=== PATIENT | female | born 1945 | race Caucasian/White ===

== ENCOUNTER 2019-11-26 10:57 | Outpatient (CLI) | payer MEDICARE, SELFPAY | END 2019-11-26 10:58 | disposition home or self-care (01) | LOC: ANHAUDIO 10:59 | PROVIDERS: PCP Family Medicine; Visit Provider Family Medicine | DX: H93.13 Tinnitus, bilateral (principal); H90.3 Sensorineural hearing loss, bilateral | CPT/HCPCS: 92557; 92567 ==

== ENCOUNTER → 2020-03-28 12:10 | Outpatient (CLI) | payer MEDICARE, SELFPAY ==
--- NOTE | ~2020-03-28 | MM_ITS ---
EXAMINATION: MM screening [facility] BI w karmen HISTORY: Screening mammogram TECHNIQUE: Craniocaudal and mediolateral oblique 3-D tomosynthesis images were obtained and synthetic 2-D images were generated. CAD analysis was submitted and interpreted. COMPARISON: 01/13/2019, 10/17/2017, 08/16/2016 BREAST PARENCHYMAL COMPOSITION: There are scattered areas of fibroglandular density. FINDINGS: Scattered benign-appearing calcifications are present. There is no evidence of suspicious m ass, calcification, or architectural distortion to suggest malignancy in either breast. There has bee n no suspicious interval change. IMPRESSION: 1. No mammographic evidence of malignancy. 2. Recommend routine screening mammography in one year. BI-RADS Category 2: Benign finding(s). Reviewed, dictated and finalized at location A. ANCE MECHANIC
== END ==
PROVIDERS: PCP Family Medicine; Visit Provider Family Medicine
DX: Z12.31 Encounter for screening mammogram for malignant neoplasm of breast (principal)
CPT/HCPCS: 77063; 77067

== ENCOUNTER → 2020-05-24 13:10 | Outpatient (CLI) | payer MEDICARE, SELFPAY ==
--- NOTE | ~2020-05-24 | DEXA_ITS ---
Bone Density Report Name: Leanna Jeff Age: 74 Sex: Female Ethnicity: White Date of : 1945 Indication: postmenopausal; screening for osteoporosis; parental hip fracture; height loss; hysterectomy; Referring Provider: Rafal, Aletha Rodríguez Study: Bone densitometry was performed. Exam Date: May 24, 2020 Accession number: [id number] Bone Density: Region BMD T-score Z-score Classification AP Spine (L1-L4) 1.031 -0.1 2.2 Normal Femoral Neck (Left) 0.742 -1.0 1.1 Normal Total Hip (Left) 0.859 -0.7 1.1 Normal Femoral Neck (Right) 0.735 -1.0 1.0 Normal Total Hip (Right) 0.857 -0.7 1.1 Normal Total Hip Mean 0.858 -0.7 1.1 Normal World Health Organization criteria for BMD impression classify patients as: Normal (T-score at or above -1.0), Osteopenia (T-score between -1.0 and -2.5), or Osteoporosis (T-score at or below -2.5). 10-year Fracture Risk: FRAX not reported because: All T-scores for Spine Total, Hip Total, Femoral Neck at or above -1.0 Previous Exams: Region Exam Age BMD T-score BMD Change BMD Change Date g/cm2 vs Baseline vs Previous AP Spine(L1-L4) 05/24/2020 74 1.031 -0.1 0.053* 0.053* 04/23/2012 66 0.978 -0.6 Total Hip(Left) 05/24/2020 74 0.859 -0.7 0.025 0.025 04/23/2012 66 0.834 -0.9 Total Hip(Right) 05/24/2020 74 0.857 -0.7 0.033* 0.033* 04/23/2012 66 0.824 -1.0 *Denotes significance at 95% confidence level, LSC for AP Spine = 0.022 g/cm2, LSC for Total Hip = 0.027 g/cm2 Clinical Information Provided by Patient: Parent has had a hip fracture Has used the following medications: Vitamin D, Calcium Has the following medical conditions: Hysterectomy Patient maximum height was 60.5 Menopause Age: 40 Does not regularly consume dairy products Onset of menses at age 13 Number of children 3 Impression: The patient has normal bone mass. The patient has risk factors, including: parental hip fracture. No significant bone loss was observed. Discussion: BONE DENSITY IS ABOVE THE MINIMUM DESIRABLE LEVEL AT ALL SKELETAL SITES TESTED. This patient?s bone mineral density is above the minimum desirable level (T-score -1.0 or better) at all sites measured. The patient should follow a healthful lifestyle (good nutrition with adequate calcium and vitamin D, and appropriate weight-bearing exercise). Follow-Up: Consider repeating this study in 5 years or sooner if there is some
== END ==
PROVIDERS: PCP Family Medicine; Visit Provider Nurse Practitioner
DX: M81.0 Age-related osteoporosis without current pathological fracture (principal); Z78.0 Asymptomatic menopausal state
CPT/HCPCS: 77080

== ENCOUNTER → 2020-07-26 07:57 | Outpatient (CLI) | payer MEDICARE, SELFPAY ==
--- NOTE | ~2020-07-26 | XR_ITS ---
XR knee LT min 4V 07/26/2020 08:42 Indication: Left knee pain and swelling Procedure: 4 views left knee Comparison: No prior studies for comparison. Findings: There is moderate tricompartment osteoarthritis of the left knee. No fracture, subluxation or dislocation. No significant joint effusion. No foreign body. Impression: 1: Moderate osteoarthritis of the left knee. Reviewed, dictated and finalized at location A. Impression: 1: Moderate osteoarthritis of the left knee.
--- NOTE | ~2020-07-26 | XR_ITS ---
EXAMINATION: XR thoracic spine 3V EXAM DATE: 07/26/2020 08:42 INDICATION: Thoracic back pain. Burning sensation, itching across back. TECHNIQUE: Frontal and lateral projections of the thoracic spine as well as lateral swimmers projecti on of the upper thoracic spine for interpretation. There is no prior study for comparison. FINDINGS: The vertebral bodies are aligned in the AP dimension. Vertebral body and disc heights are well-maintained. There is mild thoracic spondylosis. There are no bony erosions identified. There are no acute fractures identified. Mild aortic arterial sclerosis. Moderate lower cervical spondylosi s. IMPRESSION: Mild thoracic spondylosis. Reviewed, dictated and finalized at location B. IMPRESSION: Mild thoracic spondylosis.
== END ==
PROVIDERS: PCP Family Medicine; Visit Provider Nurse Practitioner
DX: M79.89 Other specified soft tissue disorders (principal); M47.894 Other spondylosis, thoracic region; M17.12 Unilateral primary osteoarthritis, left knee
CPT/HCPCS: 72072; 73564

== ENCOUNTER 2020-11-16 11:19 | Emergency (ER) | payer MEDICARE, SELFPAY ==
[2020-11-16 11:27] VITALS: BP 151/75; PULSE 77; RESP 16; TEMP 36.2; O2SAT 100
--- NOTE | 2020-11-16 12:12 | ED.FALL ---
HPI - Fall General Chief Complaint: Fall Stated Complaint: FALL Time Seen by Provider: 11/16/20 11:52 Source: patient and RN notes reviewed Mode of arrival: ambulatory Limitations: no limitations History of Present Illness HPI Narrative: Patient presents today with a laceration to her posterior scalp. States she fell down 3 stairs in her garage onto the back of her head at 930 this morning. Denies loss of consciousness at that time. Reports a headache that she currently rates 10. Took 400 mg of ibuprofen for her headache, which provided some mild relief. Denies nausea or vomiting, dizziness or lightheadedness, vision changes. She does report some pain to her right elbow and right flank area from the fall as well. She reports a goose egg to her left forehead, but is unsure how she sustained this injury. Reports she is up-to-date on her tetanus vaccine. MD complaint: fall Related Data Home Medications Medication Instructions Recorded Confirmed calcium carbonate-vitamin D3 tablet PO 11/16/20 lisinopril-hydrochlorothiazide tablet 11/16/20 lovastatin mg 11/16/20 metformin mg PO 11/16/20 omeprazole 11/16/20 Allergies Allergy/AdvReac Type Severity Reaction Status Date / Time adhesive tape Allergy Unknown RASH Verified 05/20/18 14:45 alendronate sodium Allergy Unknown LISTLESS Unverified 05/20/18 14:45 AND CONFUSED azithromycin Allergy Unknown Verified 03/24/18 09:29 methylprednisolone Allergy Unknown Verified 03/24/18 09:28 Review of Systems Review of Systems: CONSTITUTIONAL: Denies body aches, fever, chills, or sweats. EYES: Denies visual changes, redness, or discharge. ENT: Denies rhinorrhea, congestion, sore throat, or otalgia. CARDIOVASCULAR: Denies chest pain, palpitations, or edema. RESPIRATORY: Denies cough or dyspnea. GASTROINTESTINAL: Denies abdominal pain, nausea, vomiting, or diarrhea. GENITOURINARY: Denies dysuria or hematuria. SKIN: Denies rash, itching. + Right posterior scalp laceration, left forehead injury MUSCULOSKELETAL: Denies myalgia.+ Right elbow injury, right mid back injury NEUROLOGIC: Denies headache, numbness, tingling, or weakness. PSYCH: Denies depression or anxiety. [facility] Past Medical History Medical History (Updated 11/16/20 @ 12:39 by Mirian Pro, [facility], ) GERD (gastroesophageal reflux disease) High cholesterol Hypertension Social History Social History Smoking status: Current every day smoker Alcohol intake: never Comments At time of signature, I have reviewed and agree with nursing past medical, surgical, social and family history unless otherwise noted. Please see nursing chart for further information. There is no relevant family history pertinent to the presenting complaint Exam Narrative: GENERAL: Well-appearing, well-nourished, and in no acute distress. HEAD: Normocephalic. 3 cm full weakness linear laceration to the right occipital scalp with 5 cm circular area of bogginess surrounding the laceration that is tender to palpation. Patient has a large hematoma to the left forehead as well. EYES: EOMI. PERRL. No redness or drainage. Conjunctivae normal. ENT: Mucous membranes pink and moist. NECK: Normal AROM CHEST: No respiratory distress. Clear to auscultation. HEART: Regular rate and rhythm. No murmur appreciated. Normal peripheral pulses. EXTREMITIES: Contusion and mild edema to the right elbow with full AROM. Distal sensation intact. Capillary refill normal. Radial pulse normal. SKIN: Warm, dry, no rash. Capillary refill normal. Normal skin turgor. NEURO: No focal deficits. Alert and oriented x3. Gait steady. PSYCH: Normal affect. No signs of depression or anxiety. Course Vital Signs Vital signs: Vital Signs Temperature 97.2 F L 11/16/20 11:27 Pulse Rate 77 11/16/20 11:27 Respiratory Rate 16 11/16/20 11:27 Blood Pressure 151/75 H 11/16/20 11:27 Pulse Oxim
== END 2020-11-16 12:20 | disposition short-term general hospital (02) ==
PROVIDERS: Emergency Provider Nurse Practitioner; PCP Family Medicine
DX: S01.01XA Laceration without foreign body of scalp, initial encounter (principal); W10.9XXA Fall (on) (from) unspecified stairs and steps, initial encounter; K21.9 Gastro-esophageal reflux disease without esophagitis; E78.00 Pure hypercholesterolemia, unspecified; I10 Essential (primary) hypertension; F17.200 Nicotine dependence, unspecified, uncomplicated
CPT/HCPCS: 99212; G0463

== ENCOUNTER 2020-11-16 12:36 | Emergency (ER) | payer MEDICARE, SELFPAY ==
--- NOTE | ~2020-11-16 | CT_ITS ---
EXAMINATION: CT brain wo con DATE: 11/16/2020 13:54 INDICATION: Head injury. TECHNIQUE: Computed tomography (CT) of the head was performed without intravenous contrast. The mA wa s adjusted according to patient size. Iterative reconstruction technique was employed. The dose-lengt h product was 605.33 mGy-cm. COMPARISON: Head CT 09/18/2006 FINDINGS: There is no intracranial hemorrhage, acute infarction, or abnormal intracranial mass lesion . 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 The ventricles are normal in size. There is mucos al thickening in the paranasal sinuses. There is a small right mastoid effusion. There is left fronta l and right posterior scalp soft tissue swelling. There are likely changes of ocular lens replacement surgeries. IMPRESSION: 1. 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 Reviewed, dictated and finalized at location A.
--- NOTE | ~2020-11-16 | XR_ITS ---
XR elbow RT min 3V 11/16/2020 13:52 INDICATION: Right elbow pain PROCEDURE: 4 views right elbow COMPARISON: No prior studies for comparison. FINDINGS: Fracture, dislocation or subluxation is not identified. No significant joint effusion. The soft tissues appear within normal limits. No foreign bodies are identified. IMPRESSION: 1: NO ACUTE BONE OR JOINT ABNORMALITY IDENTIFIED. Reviewed, dictated and finalized at location A.
--- NOTE | ~2020-11-16 | XR_ITS ---
[XR ribs RT 2V w CXR 2V ] INDICATION: Right rib pain after fall TECHNIQUE: Frontal projection of the upper right ribs, frontal projection of the lower right ribs, ob lique projection of all the right ribs, frontal inspiratory chest x-ray for interpretation. FINDINGS: There are no displaced rib fractures identified. There are no soft tissue abnormality see n. The lungs are clear. IMPRESSION: 1:No displaced rib fractures. Reviewed, dictated and finalized at location A.
[2020-11-16 12:52] VITALS: BP 153/77; PULSE 89; RESP 20; TEMP 36.9; O2SAT 95
--- NOTE | 2020-11-16 13:11 | ED.GENADULT ---
HPI - General Adult General Chief complaint: Head Injury <JOSE Booker Last Filed: 11/16/20 15:32> Stated complaint: Fall - from urgent care <JOSE Booker Last Filed: 11/16/20 15:32> Time Seen by Provider: 11/16/20 13:02 <JOSE Booker Last Filed: 11/16/20 15:32> Source: patient and RN notes reviewed <JOSE Booker Last Filed: 11/16/20 15:32> Mode of arrival: ambulatory <JOSE Booker Last Filed: 11/16/20 15:32> Limitations: no limitations <JOSE Booker Last Filed: 11/16/20 15:32> History of Present Illness HPI narrative: Patient is a 75-year-old female who presents from urgent care for evaluation of head injury that occurred today patient was turning around when she tripped and fell striking the head injuring the right wrist elbow also complains of right rib pain patient denies syncope loss of consciousness anticoagulant use. Sent over with laceration to the posterior scalp. She notes tetanus up-to-date. Denies other injuries or trauma presents nondistressed <JOSE Booker Last Filed: 11/16/20 15:32> Related Data Home medications: Home Medications Medication Instructions Recorded Confirmed calcium carbonate-vitamin D3 tablet PO 11/16/20 lisinopril-hydrochlorothiazide tablet 11/16/20 lovastatin mg 11/16/20 metformin mg PO 11/16/20 omeprazole 11/16/20 <JOSE Booker Last Filed: 11/16/20 15:32> Allergies/adverse reactions: Allergies Allergy/AdvReac Type Severity Reaction Status Date / Time adhesive tape Allergy Unknown RASH Verified 05/20/18 14:45 azithromycin Allergy Unknown Hives Verified 11/16/20 13:05 methylprednisolone Allergy Unknown Unknown Verified 11/16/20 13:05 alendronate sodium AdvReac Unknown LISTLESS Unverified 11/16/20 13:05 AND CONFUSED <JOSE Booker Last Filed: 11/16/20 15:32> Review of Systems Review of Systems: All systems reviewed & are unremarkable except as noted in HPI and below <JOSE Booker Last Filed: 11/16/20 15:32> [facility] Past Medical History Medical History: Medical History GERD (gastroesophageal reflux disease) High cholesterol Hypertension <Morgan Ferro PA-C - Last Filed: 11/16/20 15:32> Social History Social History: Social History Smoking status: Current every day smoker Alcohol intake: never <Morgan Ferro PA-C - Last Filed: 11/16/20 15:32> Exam Narrative: GENERAL: Well-appearing, well-nourished, and in no acute distress. HEAD: Normocephalic, posterior scalp laceration. EYES: PERRLA and EOMI. ENT: Nares clear, no rhinorrhea or epistaxis. Mucous membranes moist. Oropharynx without tonsillar hypertrophy exudate or other lesions. NECK: Supple. No adenopathy or masses. CHEST: Clear to auscultation. No respiratory distress. No wheezes rales or rhonchi HEART: Regular rate and rhythm. No murmur heard. Normal peripheral pulses. EXTREMITIES: Normal range of motion. No edema. Tenderness of the right elbow right wrist right lateral posterior ribs with no deformity noted. No midline cervical thoracic or lumbar tenderness SKIN: Warm, dry, no rash. NEURO: No focal deficits. Alert and oriented x3. Neurovascularly intact. Capillary refill less than 2-second. Cranial nerves II through XII grossly intact PSYCH: Normal mood and affect. <Morgan Ferro PA-C - Last Filed: 11/16/20 15:32> Course Course Emergency Course: Patient evaluated for injuries related to a fall patient had negative imaging to include CT brain and skeletal imaging she is feeling fine at this time GCS of 15 wound was closed with shawanda she was given indications to return she is afebrile nontoxic-appearing nondistressed and agreeing to follow-up as instructed or to return if symptom
[2020-11-16 15:41] VITALS: RESP 16
== END 2020-11-16 15:40 | disposition home or self-care (01) ==
PROVIDERS: Emergency Provider General Practice; PCP Family Medicine
DX: S01.01XA Laceration without foreign body of scalp, initial encounter (principal); S20.221A Contusion of right back wall of thorax, initial encounter; S59.901A Unspecified injury of right elbow, initial encounter; S69.91XA Unspecified injury of right wrist, hand and finger(s), initial encounter; E78.00 Pure hypercholesterolemia, unspecified; I10 Essential (primary) hypertension; K21.9 Gastro-esophageal reflux disease without esophagitis; F17.200 Nicotine dependence, unspecified, uncomplicated; Z79.84 Long term (current) use of oral hypoglycemic drugs; W01.0XXA Fall on same level from slipping, tripping and stumbling without subsequent striking against object, initial encounter
CPT/HCPCS: 12001; 70450; 71046; 71100; 73080; 99284

== ENCOUNTER → 2021-07-27 10:31 | Outpatient (CLI) | payer MEDICARE, SELFPAY ==
--- NOTE | ~2021-07-27 | XR_ITS ---
EXAMINATION: XR wrist RT min 3V INDICATION: Right wrist pain TECHNIQUE: Four views of the right wrist are obtained. COMPARISON: None available FINDINGS: There is no fracture, dislocation, or subluxation. Mild osteoarthritis is present at the tr iscaphe and first carpometacarpal joints. The soft tissues are unremarkable. IMPRESSION: 1. Mild osteoarthritis. Reviewed, dictated and finalized at location F. IMPRESSION: 1. Mild osteoarthritis.
== END ==
PROVIDERS: PCP Family Medicine; Visit Provider Family Medicine
DX: M19.031 Primary osteoarthritis, right wrist (principal)
CPT/HCPCS: 73110

== ENCOUNTER 2021-08-19 12:15 | Emergency (ER) | payer MEDICARE, SELFPAY ==
[2021-08-19 12:23] VITALS: BP 153/60; PULSE 89; RESP 16; TEMP 36.9; O2SAT 99
--- NOTE | 2021-08-19 12:37 | ED.GENADULT ---
HPI - General Adult General Chief complaint: Dizziness Stated complaint: dizzy,nausea History of Present Illness HPI narrative: Patient is a 76-year-old female who presents to the urgent care via POV for evaluation of intermittent dizziness began yesterday. Additionally, patient reports her dizziness to be kind of like the room spinning . She states the episodes last approximately 3 to 4 minutes which induced nausea. She initially thought she had too much sun yesterday, although is unsure prompting today's visit. Symptoms better when remaining still and worsens all with movement. Related Data Home Medications Medication Instructions Recorded Confirmed calcium carbonate 600 mg-vitamin tablet PO 11/16/20 D3 10 mcg (400 unit) tablet lisinopril 20 tablet 11/16/20 mg-hydrochlorothiazide 12.5 mg tablet lovastatin 10 mg tablet mg 11/16/20 metformin 500 mg tablet,extended mg PO 11/16/20 release 24 hr omeprazole 20 mg capsule,delayed 11/16/20 release Allergies Allergy/AdvReac Type Severity Reaction Status Date / Time adhesive tape Allergy Unknown RASH Verified 05/20/18 14:45 azithromycin Allergy Unknown Hives Verified 11/16/20 13:05 methylprednisolone Allergy Unknown Unknown Verified 11/16/20 13:05 alendronate sodium AdvReac Unknown LISTLESS Unverified 11/16/20 13:05 AND CONFUSED Review of Systems Review of Systems: Denies fever, chills, sweats, change in appetite, LOC, headache, sinus problems, ear problems, paresthesias, back pain, abdominal pain, vomiting, shortness of breath, chest pain, and heart palpitations PMFSH Past Medical History Medical History GERD (gastroesophageal reflux disease) High cholesterol Hypertension Social History Social History Smoking status: Current every day smoker Alcohol intake: never Exam Narrative: GENERAL: Well-appearing, well-nourished, and in no acute distress. HEAD: Normocephalic, atraumatic. NECK: Supple. No Lymphadenopathy or nuchal rigidity appreciated. CHEST: Bilateral lung mcadams are clear to auscultation. No respiratory distress. No evidence of cough or pleuritic cp upon examination. HEART: Regular rate and rhythm. No murmur, gallop, or rub heard. EXTREMITIES: No evidence of injury. Full range of motion. Gait slowed. SKIN: Warm, dry, no rash. NEURO: No focal deficits. Alert and oriented x3. Positive Romberg's test; patient sways to the left and right. Course Course Level of Care: Express Care Visit Vital Signs Vital signs: Vital Signs Temperature 98.5 F 08/19/21 12:23 Pulse Rate 89 08/19/21 12:23 Respiratory Rate 16 08/19/21 12:23 Blood Pressure 153/60 H 08/19/21 12:23 Pulse Oximetry 99 08/19/21 12:23 Temperature 98.5 F 08/19/21 12:23 Pulse Rate 89 08/19/21 12:23 Respiratory Rate 16 08/19/21 12:23 Blood Pressure 153/60 H 08/19/21 12:23 Pulse Oximetry 99 08/19/21 12:23 Medical Decision Making MDM Narrative Medical decision making narrative: Otitis externa, barotrauma, eustachian tube dysfunction, AOM, OME, herpes zoster infection, acute mastoiditis, malignancy, dizziness, vertigo Vital Signs Vital Signs: Vital Signs Temperature 98.5 F 08/19/21 12:23 Pulse Rate 89 08/19/21 12:23 Respiratory Rate 16 08/19/21 12:23 Blood Pressure 153/60 H 08/19/21 12:23 Pulse Oximetry 99 08/19/21 12:23 Temperature 98.5 F 08/19/21 12:23 Pulse Rate 89 08/19/21 12:23 Respiratory Rate 16 08/19/21 12:23 Blood Pressure 153/60 H 08/19/21 12:23 Pulse Oximetry 99 08/19/21 12:23 Due to an elevated blood pressure, I had a detailed discussion with the patient and/or guardian regarding the need for follow-up with their primary care provider within the next 3-4 days. Patient verbalized understanding and agreed. Critical Care Time Critical Care Time
== END 2021-08-19 13:02 | disposition home or self-care (01) ==
PROVIDERS: Emergency Provider Nurse Practitioner Family; PCP Family Medicine
DX: H81.10 Benign paroxysmal vertigo, unspecified ear (principal); K21.9 Gastro-esophageal reflux disease without esophagitis; E78.00 Pure hypercholesterolemia, unspecified; I10 Essential (primary) hypertension; F17.200 Nicotine dependence, unspecified, uncomplicated
CPT/HCPCS: 99213; G0463

== ENCOUNTER → 2021-10-02 12:22 | Outpatient (CLI) | payer MEDICARE, SELFPAY ==
--- NOTE | ~2021-10-02 | MM_ITS ---
EXAMINATION: MM screening [facility] BI w karmen HISTORY: Screening mammogram TECHNIQUE: Craniocaudal and mediolateral oblique 3-D tomosynthesis images were obtained and synthetic 2-D images were generated. CAD analysis was submitted and interpreted. COMPARISON: 03/28/2020, 01/13/2019 BREAST PARENCHYMAL COMPOSITION: There are scattered areas of fibroglandular density. FINDINGS: Scattered benign-appearing calcifications are present. There is no suspicious mass, calcifi cation, or architectural distortion to suggest malignancy in either breast. There has been no suspici ous interval change. IMPRESSION: 1. No mammographic evidence of malignancy. 2. Recommend routine screening mammography in one year. BI-RADS Category 2: Benign finding(s). Reviewed, dictated and finalized at location A.
== END ==
PROVIDERS: PCP Family Medicine; Visit Provider Family Medicine
DX: Z12.31 Encounter for screening mammogram for malignant neoplasm of breast (principal)
CPT/HCPCS: 77063; 77067

== ENCOUNTER 2022-02-01 09:57 | Outpatient (CLI) | payer MEDICARE, SELFPAY ==
--- NOTE | ~2022-02-01 | CT_ITS ---
EXAMINATION: CT diagnostic chest w con DATE: 02/01/2022 10:35 INDICATION: Ocular myasthenia gravis TECHNIQUE: Computed tomography (CT) of the chest was performed with 75 cc Omnipaque 350 intravenous c ontrast. The dose-length product was 134.71 mGy-cm. Automated exposure control and iterative reconstr uction technique were employed. COMPARISON: Comparison to multiple prior studies sequentially, with oldest reviewed study dated 05/19. FINDINGS: There is a stable 1 cm right upper lobe nodule with interval development of central calcifi cation, most likely chronic granulomatous disease. No thoracic lymphadenopathy. There is atherosclero sis of the aorta without evidence for aneurysm or dissection. Heart size is normal. There are gallsto selam. No thoracic lymphadenopathy. There are healed right rib fractures. There is severe thoracic spon dylosis there are no new Christo or nodules or masses. No endobronchial lesions. No pneumothorax. No fo jesse airspace consolidation. IMPRESSION: 1. Stable 10 mm right upper lobe nodule with developing central calcification, most likely chronic gr anulomatous disease. 2: Cholelithiasis. Reviewed, dictated and finalized at location A. COLLECTOR IMPRESSION: 1. Stable 10 mm right upper lobe nodule with developing central calcification, most likely chronic granulomatous disease. 2: Cholelithiasis.
[2022-02-01 10:31] LABS: Estimated Glomerular Filt Rate 44
== END 2022-02-01 09:58 | disposition home or self-care (01) ==
PROVIDERS: PCP Family Medicine
DX: G70.00 Myasthenia gravis without (acute) exacerbation (principal); K80.20 Calculus of gallbladder without cholecystitis without obstruction; R91.1 Solitary pulmonary nodule
CPT/HCPCS: 71260; Q9967

== ENCOUNTER 2022-07-03 15:54 | Emergency (ER) | payer MEDICARE, SELFPAY ==
--- NOTE | ~2022-07-03 | XR_ITS ---
EXAM: XR wrist LT min 3V DATE: 07/03/2022 18:04 HISTORY: bruising and swelling after dog bite . COMPARISON: None available. FINDINGS: Normal mineralization. Small cortical irregularity and lucency along the lateral aspect of the radial styloid, seen only in the frontal view. Otherwise, no fracture or dislocation. No lytic o r blastic lesion. Scattered degenerative changes. No erosion or periosteal change. Mild soft tissue s welling about the wrist. IMPRESSION: Possible nondisplaced radial styloid fracture versus osseous cortical puncture, correlate with pain/tenderness tenderness and overlying soft tissue puncture wounds. No other acute osseous fi nding detected in the left wrist. Reviewed, dictated and finalized at location K. IMPRESSION: Possible nondisplaced radial styloid fracture versus osseous cortic al puncture, correlate with pain/tenderness tenderness and overlying soft tissu e puncture wounds. No other acute osseous finding detected in the left wrist.
--- NOTE | ~2022-07-03 | XR_ITS ---
EXAM: XR humerus LT DATE: 07/03/2022 18:04 HISTORY: dog bite . COMPARISON: None available. FINDINGS: Normal mineralization. No fracture or dislocation. No lytic or blastic lesion. Degenerativ e changes in the shoulder. No erosion or periosteal change. 11.8 cm area of increased density, likely hematoma, and subcutaneous gas projecting in the medial soft tissues of the upper arm. No radiopaque foreign body. IMPRESSION: No acute osseous finding in the left humerus. Medial upper arm soft tissues injury and he matoma. Reviewed, dictated and finalized at location K. IMPRESSION: No acute osseous finding in the left humerus. Medial upper arm soft tissues injury and hematoma.
[2022-07-03 17:52] VITALS: BP 145/71; PULSE 121; RESP 20; TEMP 36.3; O2SAT 96
--- NOTE | 2022-07-03 18:00 | ED.ANIMALBIT ---
HPI - Animal Bite General Chief Complaint: Animal Bite Time Seen by Provider: 07/03/22 17:36 History of Present Illness HPI narrative: 77-year-old female here for evaluation of a dog bite. Patient states that she was saying hello to her neighbors through the fence when their pitbull reportedly came up and bit her left posterior arm through the fence. States that she fell forwards into the fence had a shock into the scrape her nose and her right hand. She has had a moderate amount of pain and bleeding to her arm. Unsure of her last tetanus. Related Data Home Medications Medication Instructions Recorded Confirmed calcium carbonate 600 mg-vitamin tablet PO 11/16/20 D3 10 mcg (400 unit) tablet lisinopril 20 tablet 11/16/20 mg-hydrochlorothiazide 12.5 mg tablet lovastatin 10 mg tablet mg 11/16/20 metformin 500 mg tablet,extended mg PO 11/16/20 release 24 hr omeprazole 20 mg capsule,delayed 11/16/20 release Allergies Allergy/AdvReac Type Severity Reaction Status Date / Time adhesive tape Allergy Unknown RASH Verified 07/03/22 17:50 azithromycin Allergy Unknown Hives Verified 07/03/22 17:50 methylprednisolone Allergy Unknown Unknown Verified 07/03/22 17:50 alendronate sodium AdvReac Unknown LISTLESS Verified 07/03/22 17:50 AND CONFUSED Review of Systems Review of Systems: Gen: Denies fevers or chills Eyes: Denies eye pain or visual change ENT: Denies congestion Respiratory: Denies shortness of breath or cough CV: Denies chest pain or palpitations GI: Denies abdominal pain nausea, emesis or diarrhea : denies burning, urgency, frequency or hematuria Musculoskeletal: Denies back pain or muscle pain Neuro: Denies numbness, tingling, weakness or focal weakness Skin: Reports dog bite Except as documented, all other systems reviewed and negative [facility] Past Medical History Medical History GERD (gastroesophageal reflux disease) High cholesterol Hypertension Social History Social History Smoking status: Current every day smoker Alcohol intake: never Exam Narrative: Gen: Alert, oriented, no acute distress Eyes: EOMI, no icterus Pulm: Respirations even and unlabored, symmetric thorax expansion, no audible stridor or visible cyanosis CV: Regular rate per telemetry GI: No distension, no voluntary/involuntary guarding Neuro: AOx4, moves all extremities without apparent difficulty or weakness, follows commands MSK: No tenderness to palpation along the radial styloid. There is a large amount of bruising and swelling to the left tricep area; compartments in the arm are soft. Skin: There are 2 puncture wounds to the left posterior upper arm with active bleeding and subcutaneous fat visible. There are several abrasions to the dorsum of right finger 5 just proximal to the PIP. She has a small abrasion to the bridge of her nose with no active bleeding. There is a large amount of bruising to the dorsum of the left wrist and the tricep area. Psych: Normal mood/affect, insight/judgement good, adequate fund of knowledge, recent/remote memory intact Course Vital Signs Vital signs: Vital Signs Temperature 97.4 F L 07/03/22 17:52 Pulse Rate 121 H 07/03/22 17:52 Respiratory Rate 20 07/03/22 17:52 Blood Pressure 145/71 H 07/03/22 17:52 Pulse Oximetry 96 07/03/22 17:52 Oxygen Delivery Room Air 07/03/22 17:52 Temperature 97.4 F L 07/03/22 17:52 Pulse Rate 121 H 07/03/22 17:52 Respiratory Rate 20 07/03/22 17:52 Blood Pressure 145/71 H 07/03/22 17:52 Pulse Oximetry 96 07/03/22 17:52 Oxygen Delivery Room Air 07/03/22 17:52 MDM - Animal Bite MDM Narrative Medical decision making narrative: 77 year old female here after a dog bite. There are two puncture wounds to the left tricep area with a large underlying hematoma. Bruising to
[2022-07-03] MEDS: TETANUS,DIPHTHERIA,AC PERTUSSIS ADULT (0.5 ML) BOOSTRIX IM (18:05)
[2022-07-03] MEDS: HYDROcodone/acetaminophen (*CRX) 5-325 MG TABLET 1 TAB PO (18:48)
== END 2022-07-03 19:20 | disposition home or self-care (01) ==
PROVIDERS: Emergency Provider Physician Assistant; PCP Family Medicine
DX: S41.152A Open bite of left upper arm, initial encounter (principal); S50.12XA Contusion of left forearm, initial encounter; Z23 Encounter for immunization; E78.00 Pure hypercholesterolemia, unspecified; I10 Essential (primary) hypertension; K21.9 Gastro-esophageal reflux disease without esophagitis; F17.200 Nicotine dependence, unspecified, uncomplicated; Z79.84 Long term (current) use of oral hypoglycemic drugs; R93.6 Abnormal findings on diagnostic imaging of limbs; W54.0XXA Bitten by dog, initial encounter
CPT/HCPCS: 73060; 73110; 90471; 90715; 99284; A9270

== ENCOUNTER → 2023-03-09 10:13 | Outpatient (CLI) | payer MEDICARE, SELFPAY ==
--- NOTE | ~2023-03-09 | MM_ITS ---
EXAMINATION: MM screening sarai BI w karmen HISTORY: Screening TECHNIQUE: Craniocaudal and mediolateral oblique 3-D tomosynthesis images were obtained and synthetic 2-D images were generated. CAD analysis was submitted and interpreted. COMPARISON: Comparison to multiple prior studies sequentially, with oldest reviewed study dated 09/2014. BREAST PARENCHYMAL COMPOSITION: Breast composed of scattered areas of fibroglandular density FINDINGS: There is no evidence of suspicious mass, calcification, or architectural distortion to sugg est malignancy in either breast. There has been no suspicious interval change. IMPRESSION: 1. No mammographic evidence of malignancy. 2. Recommend routine screening mammography in one year. BI-RADS Category 1: Negative Reviewed, dictated and finalized at location A. [employer]
== END ==
PROVIDERS: PCP Family Medicine; Visit Provider Family Medicine
DX: Z12.31 Encounter for screening mammogram for malignant neoplasm of breast (principal)
CPT/HCPCS: 77063; 77067

== ENCOUNTER 2023-10-09 13:28 | Outpatient (CLI) | payer MEDICARE, SELFPAY ==
--- NOTE | ~2023-10-09 | XR_ITS ---
XR knee LT min 4V Ordering provider: Augustin Narayan, [employer] History: . LEFT KNEE PAIN . Comparison: July 26, 2020 FINDINGS: BONES: No acute fracture or dislocation. JOINT SPACES: Narrowing of the medial compartment. Marginal osteophytes in the patella. SOFT TISSUES: Normal. IMPRESSION: No acute osseous abnormality left knee. Severe osteoarthritic changes. Reviewed, dictated and finalized at location A.
== END 2023-10-09 13:29 | disposition home or self-care (01) ==
PROVIDERS: PCP Family Medicine; Visit Provider Registered Nurse
DX: M17.11 Unilateral primary osteoarthritis, right knee (principal)
CPT/HCPCS: 73564

== ENCOUNTER 2024-05-01 11:45 | Outpatient (CLI) | payer MEDICARE, SELFPAY ==
--- NOTE | ~2024-05-01 | MM_ITS ---
EXAMINATION: MM screening sarai BI w karmen HISTORY: Screening. Personal history of multiple excisional biopsies of the right breast, yielding be nign results. TECHNIQUE: Craniocaudal and mediolateral oblique 3-D tomosynthesis images were obtained and synthetic 2-D images were generated. CAD analysis was submitted and interpreted. COMPARISON: 03/09/2023 and dating back to 01/13/2019 BREAST PARENCHYMAL COMPOSITION: The breasts are heterogeneously dense, which may obscure small masses . FINDINGS: Punctate and bulky calcifications detected bilaterally, vascular in origin, stable and tobin gn in appearance. Otherwise stable parenchymal pattern without suspicious microcalcifications, architectural distortion , discrete masses or significant asymmetry. IMPRESSION: 1. No mammographic/tomographic evidence of malignancy. 2. Recommend routine screening mammography in one year. BI-RADS Category 2: Benign finding(s). Reviewed, dictated and finalized at location A. D GUARD
== END 2024-05-01 11:46 | disposition home or self-care (01) ==
LOC: MICIMG 11:46
PROVIDERS: PCP Family Medicine; Visit Provider Family Medicine
DX: Z12.31 Encounter for screening mammogram for malignant neoplasm of breast (principal)
CPT/HCPCS: 77063; 77067

== ENCOUNTER 2024-07-03 08:22 | Outpatient (CLI) | payer MEDICARE, SELFPAY ==
--- OUTSIDE RECORDS SUMMARY | 2024-07-03 08:27 | XMS_ITS | Clinical Summary ---
Author Organization [facility] [address] Address [address] [place] [address] Care Team Providers Care Logistics Technician Name Role Phone Frank Gillis MD Primary Care Provider [phone] Emy Blanca OD Unavailable [phone] Mihaela Knowles MD PhD Unavailab le Allergies Active Allergy Reactions Criticality Noted Date Comments Adhesive Rash Medium 01/15/2022 Azithromycin Hives Medium 01/15/2022 Medications calcium carbonate-vitamin D3 (CALTRATE 600 + D) 1500 mg (600 mg elemental) -400 units per tablet TAKE ONE TABLET IN THE MORNING AND ONE TABLET IN THE EVENING 11/20/19 22 Active lovastatin (MEVACOR) 20 mg tablet Take 1 tablet (20 mg total) by mouth daily 10/25/19 22 Active metFORMIN XR (GLUCOPHAGE XR) 500 mg 24 hr tablet Take 1 tablet (500 mg total) by mouth daily 01/03/20 22 Active omeprazole (PriLOSEC) 20 mg capsule Take by mouth daily 10/22/19 22 Active omega 6-mwz-nva-fish oil 1,200 (144-216) mg capsule Take by mouth Active meclizine (ANTIVERT) 12.5 mg tablet Take 1 tablet (12.5 mg total) by mouth 3 (three) times a day as needed Active lisinopriL (PRINIVIL,ZESTRIL) 20 mg tablet Take 1 tablet (20 mg total) by mouth daily 09/29/19 23 Active loratadine (CLARITIN) 10 mg tablet Take 1 tablet (10 mg total) by mouth every morning 07/04/19 23 Active pyRIDostigmine (MESTINON) 60 mg tabletIndications: Myasthenia Gravis,Ocular Myasthenia Take 2 tablets (120 mg total) by mouth 3 (three) times a day with meals 540 tablet 3 10/03/19 23 Active Additional Information Patient not taking.Reported on 02/03/2024 fexofenadine ODT (SEGUN ODT) 30 mg disintegrating tablet Take 1 tablet (30 mg total) by mouth daily Active xr-sotx-sitth-lyco pene-ginkgo 400-300-120 mcg-mcg-mg tablet Take by mouth Multivitamin Active triamcinolone (KENALOG) 0.1 % cream 09/25/19 24 Active psyllium seed, with sugar, (METAMUCIL, SUGAR, ORAL) Take by mouth Active predniSONE (DELTASONE) 10 mg tabletIndications: Myasthenia gravis (HCC) TAKE 2 TABLETS BY MOUTH DAILY 180 tablet 2 01/28/20 24 Active cyanocobalamin (Vitamin B-12) 1,000 mcg tabletIndications: Prevention of Vitamin B12 Deficiency Take 1 tablet (1,000 mcg total) by mouth daily Active Active Problems Problem Noted Date Diagnosed Date Nonrheumatic aortic valve stenosis 11/04/2023 Essential hypertension 11/04/2023 Mixed hyperlipidemia 11/04/2023 Myasthenia gravis 01/15/2022 Ptosis, right eyelid Encounters Date Type Department Care Team Description 06/19/[address] [facility] Neuro Muscle [address] [facility] Advanced Medicine 6th [place] [address] [place] [address] Bettie Kelley RN 05/12/[address] [facility] Neuro Muscle [address] [facility] Medicine 6th [place] [address] [place] [address] Nanci Pham RMA lung biopsy (Spoke with Denia Morelos at [facility] (medical record dep), I did sent her Leder head latter to fax us Lung biopsy from 2019.) 04/30/2024 3:25 PM BREAKFAST BAR ATTENDANT Lab [facility] [address] [place] [address] Myasthenia gravis (HCC); High risk medication use 04/30/2024 11:00 AM BREAKFAST BAR ATTENDANT Office Visit [facility] Neuro Muscle [address] [facility] 6th [place] [address] [place] [address] Mihaela Knowles MD PhD Myasthenia gravis (HCC) (Primary Dx); High risk medication use from Last 3 Months Surgical History Surgery Date Site/Laterality Comments HYSTERECTOMY 02/25/1989 - 02/24/1990 CARPAL TUNNEL RELEASE 02/25/1989 - 02/24/1990 Bilateral CATARACT EXTRACTION W/ INTRA OCULAR LENS IMPLANT, BILATERAL Bilateral Medical History Medical History Date Comments Hypertension Arthritis Pseudophakia of both eyes History of TIA (transient ischemic attack) Hyperlipidemia Diabetes mellitus, type 2 (HCC) Myasthenia gravis (HCC) 01/15/2022 Murmur, cardiac Vertigo Chronic kidney disease Family History Medical History Relation Name Comments Psoriasis Child Crohn's disease Daughter Glaucoma Mother Relation Name Status Comments Child Alive Daughter Alive Mother Social History Tobacco Use Types Packs/Day Years Used Date Smoking Tobacco: Former Cigarettes 0.3 25 0 02/25/1961 - 02/25/1985 Smokeless Tobacco: Never Tobacco Cessation:Counseling Given: No AUDIT-C Answer Date Recorded Q1: How often do you have a drink containing alc ohol? Monthly or less 12/04/2022 Average Number of Drinks Not on file 023 Frequency of Binge Drinking Not on file 11/25 Comments Unknown Sex and Gender Information Value Date Recorded Sex Assigned at Not on file Legal Sex Female 2:47 AM BREAKFAST BAR ATTENDANT Gender Identity Not on file Sexual Orientation Not on file Obstetrics History Last Filed Vital Signs Vital Sign Reading Time Taken Comments Blood Pressure 172/67 04/30/2024 10:39 AM BREAKFAST BAR ATTENDANT Pulse 88 04/30/2024 10:39 AM BREAKFAST BAR ATTENDANT Temperature - - Respiratory Rate - - Oxygen Saturation 97% 02/03/2024 12:03 PM BREAKFAST BAR ATTENDANT Inhaled Oxygen Concentration - - Weight 79.8 kg (176 lb) 04/30/2024 10:39 AM BREAKFAST BAR ATTENDANT Height 152.4 cm (5') 04/30/2024 10:39 AM BREAKFAST BAR ATTENDANT Body Mass Index 34.37 04/30/2024 10:39 AM BREAKFAST BAR ATTENDANT Plan of Treatment Health Maintenance Due Date Last Done Comments Depression Screening 1945 Fall Risk Assessment 1945 Hepatitis C Screening 1945 Osteoporosis Screening-Bone Density Scan 1945 DTaP/Tdap/Td Vaccine (1 - Tdap) 1956 Hepatitis B Screening 06/13/1963 Zoster Vaccine (1 of 2) 06/13/1995 Well Visit 65+ 2010 Pneumococcal vaccine 65+ (2 of 2 - PPSV23) 12/14/2019 12/13/2018 Covid-19 Vaccine (5 2023-2 5 season) 2023 06/29/2021, 01/16/2021, 05/10/2020, Additional history exists Influenza Vaccine (Season Ended) 2024 12/19/2021, 12/06/2020, 10/28/2019, Additional history exists Procedures Procedure Name Priority Date/Time Associated Diagnosis Comments EGFR Routine 04/30/2024 12:44 PM BREAKFAST BAR ATTENDANT Myasthenia gravis (HCC) High risk medication use DIFFERENTIAL AUTO Routine 04/30/2024 12: 44 PM BREAKFAST BAR ATTENDANT Myasthenia gravis (HCC) High risk medication use ACETYLCHOLINE RECEPTOR, BINDING AB Routine 04/30/2024 12:44 PM BREAKFAST BAR ATTENDANT Myasthenia gravis (HCC) High risk medication use COMPREHENSIVE METABOLIC PANEL Routine 04/30/2024 12:44 PM BREAKFAST BAR ATTENDANT Myasthenia gravis (HCC) High risk medication use CBC WITH AUTO DIFFERENTIAL Routine 04/30/2024 12:44 PM BREAKFAST BAR ATTENDANT Myasthenia gravis (HCC) High risk medication use HEMOGLOBIN A1C Routine 04/30/2024 12:44 PM BREAKFAST BAR ATTENDANT Myasthenia gravis (HCC) High risk medication use from Last 3 Months Results * (ABNORMAL) eGFR (04/30/2024 12:44 PM BREAKFAST BAR ATTENDANT) eGFR 54(L) >=60 mL/min/1. 73 m2 Comment: Interpretive Data Reference Interval Normal >/= 90 mL/min/1.73m2 Mildly decreased* 60 - 89 mL/min/1.73m2 Mildly to moderately decreased 45 - 59 mL/min/1.73m2 Moderately to severely decreased 30 - 44 mL/min/1.73m2 Severely decreased 15 - 29 mL/min/1.73m2 Kidney Failure < 15 mL/min/1.73m2 *Relative to young adult level Estimated glomerular filtration rate is determined by the 2020 CKD-EPI equation recommended by the National Kidney Foundation (A Unifying Approach to GFR Estimation: Recommendations of the NKF-ASK Task Force on Reassessing the Inclusion of Race in Diagnosing Kidney Disease, JASN 2020). The CKD-EPI equation should not be used for patients with unstable renal function and has not been validated in children and those over 70. Current interpretive data was last reviewed 2020. Blood 04/30/2024 12:4 4 PM BREAKFAST BAR ATTENDANT 04/30/2024 1:07 PM BREAKFAST BAR ATTENDANT us Mihaela Knowles MD PhD LAB BLOOD ORDERABLES Final Result [facility] Department [place] [address] * (ABNORMAL) Differential, auto (04/30/2024 12:44 PM BREAKFAST BAR ATTENDANT) Pathologist [facility] Neutrophil abs 15.8(H) 1.5 - 6.5 K/cumm Imm gran abs 0.5(H) 0.0 - 0.1 K/cumm [facility] Lymphocyte abs 1.0 0.8 - 3.3 K/cumm [facility] Monocyte abs 0.7 0.2 - 0.8 K/cumm [facility] Eosinophil abs 0.0 0.0 - 0.5 K/cumm [facility] Basophil abs 0.1 0.0 - 0.1 K/cumm [facility] Neutrophil pct 87.5 % [facility] Comment: Interpretive Data Percent cell count reference ranges are not reported, since discordance with absolute values may lead to misinterpretation of CBC data. Current Interpretive Data was last revised on 2017. Imm gran pct 2.6 % [facility] Comment: Interpretive Data Percent cell count reference ranges are not reported, since discordance with absolute values may lead to misinterpretation of CBC data. Current Interpretive Data was last revised on 2017. Lymphocyte pct 5.6 % [facility] Comment: Interpretive Data Percent cell count reference ranges are not reported, since discordance with absolute values may lead to misinterpretation of CBC data. Current Interpretive Data was last revised on 2017. Monocyte pct 3.6 % [facility] Comment: Interpretive Data Percent cell count reference ranges are not reported, since discordance with absolute values may lead to misinterpretation of CBC data. Current Interpretive Data was last revised on 2017. Eosinophil pct 0.1 % [facility] Comment: Interpretive Data Percent cell count reference ranges are not reported, since discordance with absolute values may lead to misinterpretation of CBC data. Current Interpretive Data was last revised on 2017. Basophil pct 0.6 % [facility] Comment: Interpretive Data Percent cell count reference ranges are not reported, since discordance with absolute values may lead to misinterpretation of CBC data. Current Interpretive Data was last revised on 2017. Blood 04/30/2024 12:4 4 PM BREAKFAST BAR ATTENDANT 04/30/2024 1:01 PM BREAKFAST BAR ATTENDANT us Mihaela Knowles MD PhD LAB BLOOD ORDERABLES Final Result [facility] Department [place] [address] * (ABNORMAL) CBC with auto differential (04/30/2024 12:44 PM BREAKFAST BAR ATTENDANT) WBC 18.0(H) 3.8 - 9.9 K/cumm Hgb 12.0 11.9 - 15.5 g/dL [facility] Hct 37.6 35.6 - 45.5 % [facility] Plt 436(H) 150 - 400 K/cumm [facility] MPV 10.1 9.1 - 12.3 fL [facility] RBC 4.29 3.90 - 5.20 M/cumm [facility] MCV 87.6 81.3 - 96.4 fL [facility] MCH 28.0 27.1 - 33.3 pg [facility] MCHC 31.9(L) 32.3 - 35.7 g/dL [facility] RDW CV 15.1(H) 11.1 - 14.9 % [facility] RDW SD 48.6(H) 35.7 - 48.1 fL [facility] NRBC abs 0.00 0.00 - 0.01 K/cumm [facility] Blood 04/30/2024 12:4 4 PM BREAKFAST BAR ATTENDANT 04/30/2024 1:01 PM BREAKFAST BAR ATTENDANT us Mihaela Knowles MD PhD LAB BLOOD ORDERABLES Final Result [facility] Department [place] [address] * (ABNORMAL) Acetylcholine receptor, binding AB (04/30/2024 12:44 PM BREAKFAST BAR ATTENDANT) [facility] Anti-acetylcholine receptor, binding 0.53(H) <=0.02 nmol/L [facility] Comment: Due to a change in assay reagent for the Acetylcholine Receptor (Muscle AChR) Binding Antibody (ARBI) test, direct quantitative comparison to previous testing results is not advised. ADDITIONAL INFORMATION This test was developed and its performance characteristics determined by [facility] in a manner consistent with CLIA requirements. This test has not been cleared or approved by the U.S. Food and Drug Administration. Test Performed by: [facility] - [address] [address] Gastroenterology Physician: Rachel Arvizu Ph.D.; CLIA# [id number] Blood 04/30/2024 12:4 4 PM BREAKFAST BAR ATTENDANT 04/30/2024 2:02 PM BREAKFAST BAR ATTENDANT Mihaela Knowles MD PhD LAB BLOOD ORDERABLES Final Result Performing Organization Address [facility] Co de Phone Number [facility] Department [place] [address] [facility] * (ABNORMAL) Hemoglobin A1c (04/30/2024 12:44 PM BREAKFAST BAR ATTENDANT) Pathologist [facility] Hgb A1C 6.6(H) 4.0 - 5.6 % Estimated Average Glucose 143 mg/dL [facility] Comment: The ADA recommends reporting an estimated Average Glucose (eAG) with all Hemoglobin A1c results using the equation derived from a study of 507 normal and diabetic adults. Minority populations were underrepresented and children were not included. (Diabetes Care 2020; 43(S1): S66-S76). The eAG is not equivalent to a fasting glucose. Blood 04/30/2024 12:4 4 PM BREAKFAST BAR ATTENDANT 04/30/2024 1:01 PM BREAKFAST BAR ATTENDANT Mihaela Knowles MD PhD LAB BLOOD ORDERABLES Final Result Performing Organization Address [facility] de Phone Number [facility] Department [place] [address] * Comprehensive metabolic panel (04/30/2024 12:44 PM BREAKFAST BAR ATTENDANT) [facility] Sodium 142 135 - 145 mmol/L Potassium, pl 4.6 3.3 - 4.9 mmol/L [facility] Chloride 103 97 - 110 mmol/L [facility] CO2 27 22 - 32 mmol/L [facility] Anion gap 12 2 - 15 mmol/L [facility] BUN 24 6 - 25 mg/dL [facility] Creatinine 1.05 0.60 - 1.10 mg/dL [facility] Glucose 154 70 - 199 mg/dL [facility] Comment: Interpretive Data Fasting glucose >/= 126 mg/dl is diagnostic for diabetes. Fasting is defined as no caloric intake for at least 8 hours. Fasting glucose between 100 mg/dl to 125 mg/dl is diagnostic of prediabetes. In a patient with classic symptoms of hyperglycemia or hyperglycemic crisis, a random glucose >/= 200 mg/dl is diagnostic for diabetes. In the absence of unequivocal hyperglycemia, results should be confirmed by repeat testing. The classification and Diagnosis of Diabetes Diabetes Care 2021; 46: S19-S40. Current interpretive data was last revised 2022. Calcium 9.7 8.5 - 10.3 mg/dL [facility] Bilirubin, total 0.3 0.1 - 1.2 mg/dL [facility] Protein, pl 7.2 6.5 - 8.5 g/dL [facility] Albumin 4.1 3.5 - 5.0 g/dL [facility] Alk phos 64 40 - 130 Units/L [facility] ALT 21 7 - 45 Units/L [facility] AST 17 10 - 45 Units/L [facility] Blood 04/30/2024 12:4 4 PM BREAKFAST BAR ATTENDANT 04/30/2024 1:01 PM BREAKFAST BAR ATTENDANT Mihaela Knowles MD PhD LAB BLOOD ORDERABLES Final Result [facility] [place] [address] from Last 3 Months Insurance [facility] [employer]CR HMO REF MEDICARE ADVANTAGE Member Subscriber Plan / Payer (Ef fective 2023-Present) Name:Leanna Jeff Relation to Subscriber:Self Name:Leanna Jeff Payer ID:[id number] (NAIC) Type:[facility] MEDICARE Address: [address] [phone] Care Teams Logistics Technician Relationship Specialty Start Date End Date Frank Gillis MD PCP - General Family Medicine 01/15/22 Emy Blanca OD [address] [place] [address] Referring Physician Optometry 01/15/22 Mihaela Knowles MD PhD [address] [facility] NEUROLOGY NEUROMUSCULAR, [address] [address] Neurologist Neurology 9/5/23
--- OUTSIDE RECORDS SUMMARY | 2024-07-03 08:27 | XMS_ITS | Data Portability ---
Author Organization [place] - [place] [employer] [facility], Main Office Address [address] [place] [address] Care Team Providers Care Bar Steward Name Role Phone VALENTINO GARCIA Primary Care Provider VALENTINO GARCIA Referring Provider [phone] Assessment No assessment recorded. Plan of Treatment Reminders Order Date Submit Date Provider Last Modified By Organization Details Last Modified Time Details Appointments None record ed. Lab None record ed. Referral None record ed. Procedures None record ed. Surgeries None record ed. Imaging XR, wrist, 3 or more view 023 08/01/19 [email or web address] [facility] [place], [address] [place] [address] [address], [place], [address], 15:20:02 Medication Orders None record ed. Patient TargetsNo targets recorded. Patient InstructionsNo instructions recorded. Reason for Referral None Reported. Results Created Date Observation Date Name Description Value Unit Range Abnormal Flag Note LastModifiedBy Organization Detail LastModifiedTime 07/18/1907/03/2022 XR, wrist , 3 or more view No observ ation record ed. [email or web address] Not Available 06/26 10:10:30 07/18/19 23 07/03/2022 XR, humer us No observ ation record ed. [email or web address] Not Available 06/26 10:10:30 07/18/19 23 07/03/2022 XR, wrist No observ ation record ed. [email or web address] Not Available 2022 10:12:42 07/18/19 23 07/03/2022 XR, humer us, 2 or more view No observ ation record ed. [email or web address] Not Available 2022 10:13:16 06/06/20 23 XR, wrist , 3 or more view No observ ation record ed. [email or web address] [facility] [place] [address], [place], [address], 07/31/2022 15:20:01 Result Notes None recorded. Problems Name Problem SNOMED Code Status Onset Date Resolution Date Notes Provider Name and Address Organization Details Recorded Time Pain of left wrist 177349615485652 Active 2022 Gail Black, ROSELYN null, [place] [facility] 14:19:46 Open wound of left upper arm due to dog bite 37611519284032687 Active 2022 Pawan Waggoner MD [address] [place] [address], [facility] [address], [place], [address] , [employer] 15:20:19 Problem Notes None recorded. Procedures Surgical History None recorded. Imaging Results Imaging Date Name Status LastModified by Organiz ation Details LastModified Time 07/03/2022 XR, wrist, 3 or more view completed Information not available 07/17/2022 10:10:30 07/03/2022 XR, humerus completed Information not available 07/17/2022 10:10:30 07/03/2022 XR, wrist completed [email or web address] Information no t available 07/17/2022 10:12:42 07/03/2022 XR, humerus, 2 or more view completed [email or web address] Information not available 07/17/2022 10:13:16 07/31/2022 XR, wrist, 3 or more view completed [email or web address] [facility] [place] [address], [place], [address], 07/31/2022 15:20:01 Procedure Notes None recorded. Medical Equipment None Reported. Medications Name Sig Start Date Stop Date Status Note LastModified by Organization Details LastModified Time prednisone 10 mg tablet TAKE 2 TABLETS BY MOUTH DAILY active Not Available Not Available No t Available lisinopril 20 mg-hydrochl orothiazide 12.5 mg tablet TAKE 1 TABLET BY MOUTH EVERY DAY 07/31 completed Not Available Not Available Not Available meloxicam 15 mg tablet TAKE 1 TABLET BY MOUTH EVERY DAY IN THE MORNING 07/31 completed Not Available Not Available Not Available lisinopril 20 mg tablet TAKE 1 TABLET BY MOUTH EVERY DAY active Not Available Not Available No t Available prednisone 20 mg tablet TAKE 1 ORAL TABLET 2 TIMES A DAY MORNING AND EVENING 07/31 completed Not Available Not Available Not Available meclizine 12.5 mg tablet TAKE 2 TABLETS BY MOUTH DAILY 07/31 completed Not Available Not Available Not Available pyridostigm ine bromide 60 mg tablet TAKE 2 TABLETS (120 MG TOTAL) BY MOUTH 3 (THREE) TIMES A DAY WITH MEALS active Not Available Not Available No t Available omeprazole 20 mg capsule,del ayed release TAKE 1 CAPSULE BY MOUTH EVERY DAY IN THE MORNING active Not Available Not Available No t Available lovastatin 20 mg tablet TAKE 1 TABLET BY MOUTH EVERY DAY active Not Available Not Available No t Available albuterol sulfate HFA 90 mcg/actuati on aerosol inhaler INHALE 1 TO 2 PUFFS BY MOUTH 2 TO 3 TIMES DAILY NEEDED FOR SHORTNESS OF BREATH 07/31 completed Not Available Not Available Not Available ondansetron 4 mg disintegrat ing tablet DISSOLVE 1 TABLET ON TONGUE EVERY 8 HOURS FOR 4 DAYS 07/31 completed Not Available Not Available Not Available fluticasone propionate 50 mcg/actuati on nasal spray,suspe nsion USE 1-2 NASAL SPRAYS DAILY. active Not Available Not Available No t Available metformin ER 500 mg tablet,exte nded release 24 hr TAKE 1 TABLET BY MOUTH EVERY DAY active Not Available Not Available No t Available loratadine 10 mg tablet TAKE 1 TABLET BY MOUTH EVERY DAY IN THE MORNING active Not Available Not Available No t Available amoxicillin 875 mg-potassiu m clavulanate 125 mg tablet TAKE 1 TABLET BY MOUTH EVERY 12 HOURS 07/31 completed Not Available Not Available Not Available amoxicillin 500 mg-potassiu m clavulanate 125 mg tablet 07/31 completed Not Available Not Available Not Available calcium 600 mg (as carbonate)- vitamin D3 10 mcg (400 unit) tablet TAKE ONE TABLET IN THE MORNING AND ONE TABLET IN THE EVENING active Not Available Not Available No t Available Vitals Date Recorded Body height Body mass index (BMI) Body weight Pain severity - 0-10 verbal numeric rating [Score] - Reported Provider Name and Address Organization Details Last Updated DateTime 07/31/2022 152.4 cm 29.9 kg/m2 19456.63 g 8 ROSELYN Wall [facility] [employer] 07/31/2022 14:16:48 Social History Question Answer Notes LastModified by Organizat ion Details LastModified Time Tobacco Smoking Status Unknown If Ever Smoked ROSELYN Wall null, [facility] [employer] [facility] 07/31/2022 14:18:23 What Is Your Level Of Alcohol Consumption? None [email or web address] Information not available 07/31/2022 What Was The Date Of Your Most Recent Tobacco Screening? 07/31/2022 [email or web address] Information not available 07/31/2022 Sex: Unknown Functional Status None recorded. Mental Status None recorded. Family History Relationship Description Onset Age of this Age Resolved Age Notes LastModified by Organization Details LastModified Time Mother Family history of malignant neoplasm [email or web address] Not available 2022 14:17:57 Medical History Condition Response ARTHRITIS Y STROKE/TIA Y Gynecological HistoryNo gynecological history recorded. Obstetrics History GPAL:G 0 P 0 0 0 0 Past Encounters Encounter ID Performer Location Encounter Start Date Encounter Closed Date Diagnosis/Indication Diagnosis SNOMED-CT Code Diagnosis ICD10 Code Diagnosis Note [id number] Pawan Waggoner MD [facility] [place] [address] [facility] [address] [place] [address] 07/31/2022 13:57:15 07/31/2022 14:38:46 Pain of left wrist 4109746615 03499 M25.532 Open wound of left upper arm due to dog bite 9556660108 1134095 S41.152A patient has a organized hematoma in the posterior arm and 1 in the medial arm odds of these slowly reabsorbin g or pretty good. She needs to avoid pressure over the ulnar nerve and prolonged flexion of the elbow that can irritate the ulnar nerve is she still has a little tingly sensation in the ulnar distributi on of the hand. From dog bites, patients typically have more of a neuropraxi c type injury had the odds are pretty good that her numbness and tingling will diminish with time. We would need to see her again if she has any issues related to the hematoma not reabsorbed being on its own and causing her any irritation of her arm over time. Patient can do moist heat from time to time 10-20 minutes to help with any sensitivit y associated inflammati on in the arm Health Concerns Section Related Observation LastModified by Organization Detai ls LastModified Time None Recorded Concern Status LastModified by Organization Details LastModified Time None Recorded Advance Directives Directive None Recorded Payers Encounter Date Sequence Insurance Name Policy Number Policy Grady Covered Member ID Grady Member ID Guarantor Name 07/31/2022 1 [facility] (MEDICARE REPLACEMENT/A DVANTAGE - HMO) [id number] Leanna L Tomer [id number] Leanna Tomer Notes Date Note Type Note Provider Name and Address Organization Details Recorded Time 07/31/2022 text/html patient was attacked by a dog, not her dog. Injury occurred 07/03/2022. The dog hit her up against her right hip and then started to lunge towards her throat she put out her left arm to protect herself suffering bites around the posterior distal arm just above the elbow and near the wrist on the left side. Patient has some numbness and tingling around the elbow and around the wrist has a lump over the posterior elbow and over the medial elbow. Patient has noticed a little improvement over the last several weeks. She has been trying to avoid putting any pressure over the wrist or elbow area uses a pillow to avoid pressure on the elbow when she is riding in the car and uses it at night to prop up her elbow and arm. Pawan Waggoner MD [address] [place] [address], [place] [address], [place], [address], [facility] [employer] 07/31/2022 15:22:00 OBGyn Episode No OBEpisode recorded.
--- OUTSIDE RECORDS SUMMARY | 2024-07-03 08:27 | XMS_ITS | Continuity of Care Document ---
Author Organization [facility] Address [address] [place] [address] [place] [address] Phone Care Team Providers Care Wheel Molder Name Role Phone Fuentes Kyle Unavailable Unavailable Procedures Procedure Date Eye Exam & Treatment Office/outpatient Visit, [facility] Advance Directives Directive Yes / No Effective Date File Name No Information Encounters Encounter Description Practice Location Reason(s) For Visit Diagnoses Date Provider Providers Copied on Encounter [facility], [address] [place] [address] [address], [place], [place], [id number], tel:[phone] [facility] ([facility]) No Information 4-201 0 Saroj Dill. [address] [place] [address], [facility], [place]. tel:[phone] Referring Provider: Fuentes tejada, [facility] [address], [facility]. tel:[phone] Office/outpat ient Visit, [facility], [address] [place] [address] [address], [place], [place], [address], tel:[phone] [facility] No Information 0-200 7 Miko Corrales. [address], [facility] [place], [address], [place]. tel:[phone] Family History Family Member Type Diagnosis Age At Onset No Information Payers Payer name Insurance type Covered libertarian ID Authoriza tion(s) No Information Social History Type Description Quantity Date Captured Comments Sex Female Smoking Status No Information Chief Complaint And Reason For Visit No Information Reason For Referral Reason For Referral No Information History Of Present Illness Encounter Date Complaint History Of Prese nt Illness No Information Functional Status Date Functional Assessmen t No Information Instructions Date Instruction Additional Infor mation No Information Assessments Type Assessment Date No Information Patient Care Teams Name Effective Dates (start - stop) Status Members No Information
--- OUTSIDE RECORDS SUMMARY | 2024-07-03 08:28 | XMS_ITS | Referral Summary ---
Author Organization [facility] [address] Address [address] [place] [address] Care Team Providers Care Smash Hand Name Role Phone Frank Gillis MD Primary Care Provider [phone] Emy Blanca OD Unavailable Mihaela Knowles MD PhD Unavailab le Encounters Date Type Department Care Team Description 06/19/2024 Telephone [facility] Neuro Muscle [address] [facility] 6th [place] [address] [place] [address] Bettie Kelley RN 05/12/2024 Documentation [facility] Neuro Muscle [address] [facility] 6th [place] [address] [place] [address] Nanci Pham RMA lung biopsy (Spoke with Denia Morelos at [facility] (medical record dep), I did sent her Leder head latter to fax us Lung biopsy from 2019.) 04/30/2024 3:25 PM HEALTH SERVICES MANAGER Lab [facility] [address] [place] [address] Myasthenia gravis (HCC); High risk medication use 04/30/2024 11:00 AM HEALTH SERVICES MANAGER Office Visit [facility] Neuro Muscle [address] [facility] 6th [place] [address] [place] [address] Mihaela Knowles MD PhD Myasthenia gravis (HCC) (Primary Dx); High risk medication use from Last 3 Months Allergies Active Allergy Reactions Criticality Noted Date [...] by mouth daily 10/22/19 22 Active omega 7-cwp-onf-fish oil 1,200 (144-216) mg capsule Take by [...] (30 mg total) by mouth daily Active mm-xrag-hgmpb-lyco pene-ginkgo 400-300-120 mcg-mcg-mg tablet Take by mouth [...] 11/04/2023 Myasthenia gravis 01/15/2022 Ptosis, right eyelid Social History Tobacco Use Types Packs/Day Years [...] on file Legal Sex Female 2:47 AM HEALTH SERVICES MANAGER Gender Identity Not on file Sexual Orientation Not on file Last Filed Vital Signs Vital Sign Reading Time Taken Comments Blood Pressure 172/67 04/30/2024 10:39 AM HEALTH SERVICES MANAGER Pulse 88 04/30/2024 10:39 AM HEALTH SERVICES MANAGER Temperature - - Respiratory Rate - - Oxygen Saturation 97% 02/03/2024 12:03 PM HEALTH SERVICES MANAGER Inhaled Oxygen Concentration - - Weight 79.8 kg (176 lb) 04/30/2024 10:39 AM HEALTH SERVICES MANAGER Height 152.4 cm (5') 04/30/2024 10:39 AM HEALTH SERVICES MANAGER Body Mass Index 34.37 04/30/2024 10:39 AM HEALTH SERVICES MANAGER Plan of Treatment Not on file Procedures Procedure Name Priority Date/Time Associated Diagnosis Comments EGFR Routine 04/30/2024 12:44 PM HEALTH SERVICES MANAGER Myasthenia gravis (HCC) High risk medication use DIFFERENTIAL AUTO Routine 04/30/2024 12: 44 PM HEALTH SERVICES MANAGER Myasthenia gravis (HCC) High risk medication use ACETYLCHOLINE RECEPTOR, BINDING AB Routine 04/30/2024 12:44 PM HEALTH SERVICES MANAGER Myasthenia gravis (HCC) High risk medication use COMPREHENSIVE METABOLIC PANEL Routine 04/30/2024 12:44 PM HEALTH SERVICES MANAGER Myasthenia gravis (HCC) High risk medication use CBC WITH AUTO DIFFERENTIAL Routine 04/30/2024 12:44 PM HEALTH SERVICES MANAGER Myasthenia gravis (HCC) High risk medication use HEMOGLOBIN A1C Routine 04/30/2024 12:44 PM HEALTH SERVICES MANAGER Myasthenia gravis (HCC) High risk medication use from Last 3 Months Results * (ABNORMAL) eGFR (04/30/2024 12:44 PM HEALTH SERVICES MANAGER) eGFR 54(L) >=60 mL/min/1. 73 m2 Comment: [...] reviewed 2020. Blood 04/30/2024 12:4 4 PM HEALTH SERVICES MANAGER 04/30/2024 1:07 PM HEALTH SERVICES MANAGER us Mihaela Knowles MD PhD LAB BLOOD ORDERABLES Final Result [facility] [place] [address] * (ABNORMAL) Differential, auto (04/30/2024 12:44 PM HEALTH SERVICES MANAGER) Neutrophil abs 15.8(H) 1.5 - 6.5 K/cumm Imm gran abs 0.5(H) 0.0 - 0.1 K/cumm [facility] Lymphocyte abs 1.0 0.8 - 3.3 K/cumm [facility] Monocyte abs 0.7 0.2 - 0.8 K/cumm [facility] Eosinophil abs 0.0 0.0 - 0.5 K/cumm [facility] Basophil abs 0.1 0.0 - 0.1 K/cumm [facility] Neutrophil pct 87.5 % [facility] Comment: Interpretive Data Percent cell count reference ranges are not reported, since discordance with absolute values may lead to misinterpretation of CBC data. Current Interpretive Data was last revised on 2017. Imm gran pct 2.6 % [facility] Comment: Interpretive Data Percent cell count reference ranges are not reported, since discordance with absolute values may lead to misinterpretation of CBC data. Current Interpretive Data was last revised on 2017. Lymphocyte pct 5.6 % [facility] Comment: Interpretive Data Percent cell count reference ranges are not reported, since discordance with absolute values may lead to misinterpretation of CBC data. Current Interpretive Data was last revised on 2017. Monocyte pct 3.6 % [facility] Comment: Interpretive Data Percent cell count reference ranges are not reported, since discordance with absolute values may lead to misinterpretation of CBC data. Current Interpretive Data was last revised on 2017. Eosinophil pct 0.1 % [facility] Comment: Interpretive Data Percent cell count reference ranges are not reported, since discordance with absolute values may lead to misinterpretation of CBC data. Current Interpretive Data was last revised on 2017. Basophil pct 0.6 % [facility] Comment: Interpretive Data Percent cell count reference ranges are not reported, since discordance with absolute values may lead to misinterpretation of CBC data. Current Interpretive Data was last revised on 2017. Blood 04/30/2024 12:4 4 PM HEALTH SERVICES MANAGER 04/30/2024 1:01 PM HEALTH SERVICES MANAGER Mihaela Knowles MD PhD LAB BLOOD ORDERABLES Final Result Performing Organization Address City/[facility]/ZIP Co de Phone Number [facility] Department [place] [address] * (ABNORMAL) CBC with auto differential (04/30/2024 12:44 PM HEALTH SERVICES MANAGER) [facility] WBC 18.0(H) 3.8 - 9.9 K/cumm Hgb 12.0 11.9 - 15.5 g/dL [facility] Hct 37.6 35.6 - 45.5 % [facility] Plt 436(H) 150 - 400 K/cumm [facility] MPV 10.1 9.1 - 12.3 fL [facility] RBC 4.29 3.90 - 5.20 M/cumm [facility] MCV 87.6 81.3 - 96.4 fL [facility] MCH 28.0 27.1 - 33.3 pg [facility] MCHC 31.9(L) 32.3 - 35.7 g/dL [facility] RDW CV 15.1(H) 11.1 - 14.9 % [facility] RDW SD 48.6(H) 35.7 - 48.1 fL [facility] NRBC abs 0.00 0.00 - 0.01 K/cumm [facility] Blood 04/30/2024 12:4 4 PM HEALTH SERVICES MANAGER 04/30/2024 1:01 PM HEALTH SERVICES MANAGER Mihaela Knowles MD PhD LAB BLOOD ORDERABLES Final Result [facility] Department [place] [address] * (ABNORMAL) Acetylcholine receptor, binding AB (04/30/2024 12:44 PM HEALTH SERVICES MANAGER) Pathologist [facility] Anti-acetylcholine receptor, binding 0.53(H) <=0.02 nmol/L [facility] Comment: Due to a change in assay reagent for the Acetylcholine Receptor (Muscle AChR) Binding Antibody (ARBI) test, direct quantitative comparison to previous testing results is not advised. ADDITIONAL INFORMATION This test was developed and its performance characteristics determined by [facility] in a manner consistent with CLIA requirements. This test has not been cleared or approved by the U.S. Food and Drug Administration. Test Performed by: [address] [address] Natural Resources Technician: Rachel Arvizu Ph.D.; CLIA# [id number] Blood 04/30/2024 12:4 4 PM HEALTH SERVICES MANAGER 04/30/2024 2:02 PM HEALTH SERVICES MANAGER Mihaela Knowles MD PhD LAB BLOOD ORDERABLES Final Result Performing Organization Address [facility] de Phone Number [facility] [place] [address] [facility] * (ABNORMAL) Hemoglobin A1c (04/30/2024 12:44 PM HEALTH SERVICES MANAGER) Hgb A1C 6.6(H) 4.0 - 5.6 % Estimated Average Glucose 143 mg/dL [facility] Comment: The ADA recommends reporting an estimated Average Glucose (eAG) with all Hemoglobin A1c results using the equation derived from a study of 507 normal and diabetic adults. Minority populations were underrepresented and children were not included. (Diabetes Care 2020; 43(S1): S66-S76). The eAG is not equivalent to a fasting glucose. Blood 04/30/2024 12:4 4 PM HEALTH SERVICES MANAGER 04/30/2024 1:01 PM HEALTH SERVICES MANAGER Mihaela Knowles MD PhD LAB BLOOD ORDERABLES Final Result Performing Organization Address [facility] Co de Phone Number [facility] [place] [address] * Comprehensive metabolic panel (04/30/2024 12:44 PM HEALTH SERVICES MANAGER) Sodium 142 135 - 145 mmol/L Potassium, pl 4.6 3.3 - 4.9 mmol/L [facility] Chloride 103 97 - 110 mmol/L [facility] CO2 27 22 - 32 mmol/L [facility] Anion gap 12 2 - 15 mmol/L [facility] BUN 24 6 - 25 mg/dL [facility] Creatinine 1.05 0.60 - 1.10 mg/dL [facility] Glucose 154 70 - 199 mg/dL [facility] Comment: Interpretive Data Fasting glucose >/= 126 [...] 2022. Calcium 9.7 8.5 - 10.3 mg/dL [facility] Bilirubin, total 0.3 0.1 - 1.2 mg/dL [facility] Protein, pl 7.2 6.5 - 8.5 g/dL [facility] Albumin 4.1 3.5 - 5.0 g/dL [facility] Alk phos 64 40 - 130 Units/L [facility] ALT 21 7 - 45 Units/L [facility] AST 17 10 - 45 Units/L [facility] Blood 04/30/2024 12:4 4 PM HEALTH SERVICES MANAGER 04/30/2024 1:01 PM HEALTH SERVICES MANAGER us Mihaela Knowles MD PhD LAB BLOOD ORDERABLES Final Result [facility] One [facility] [place] [address] from Last 3 Months Insurance [facility]CR HMO REF [facility] Address: [place] [address] [employer] MEDIC[employer] [address] [facility]IC[facility] Address: [address] [employer] MEDICARE ADVANTAGE [facility] MEDICARE Address: [address] [address] [address] Care Teams Smash Hand Relationship Specialty Start Date End Date Frank Gillis MD PCP - General Family Medicine 01/15/22 Emy Blanca OD [address] [place] [address] Referring Physician Optometry 01/15/22 Mihaela Knowles MD PhD [address] [facility], [address] [address] Neurologist Neurology 10/30/22
== END 2024-07-03 08:23 | disposition home or self-care (01) ==
PROVIDERS: PCP Family Medicine; Visit Provider Registered Nurse
DX: M79.671 Pain in right foot (principal)
CPT/HCPCS: 73630

== ENCOUNTER 2024-07-24 06:53 | Outpatient (CLI) | payer MEDICARE, SELFPAY ==
--- OUTSIDE RECORDS SUMMARY | 2024-07-24 06:56 | XMS_ITS | Data Portability ---
Author Organization [place] [employer] [facility], Main Office Address [address] [place] [address] Care Team Providers Care Cathode Ray Tube Assembler Name Role Phone VALENTINO GARCIA Primary Care Provider VALENTINO GARCIA Referring Provider [phone] Assessment No assessment recorded. Plan of Treatment Reminders Order Date Submit Date Provider Last Modified By Organization Details Last Modified Time Details Appointments None record ed. Lab None record ed. Referral None record ed. Procedures None record ed. Surgeries None record ed. Imaging XR, wrist, 3 or more view 023 08/01/19 [email or web address] [facility] [place], [address] [place] [address] [address], [place], [address], 15:20:02 Medication Orders None record ed. Patient [...] XR, wrist No observ ation record ed. [email or web address] Not Available 2022 10:12:42 07/18/19 23 07/03/2022 XR, humer us, 2 or more view No observ ation record ed. [email or web address] Not Available 2022 10:13:16 06/06/20 23 XR, wrist , 3 or more view No observ ation record ed. [email or web address] [facility] [place] [address], [place], [address], 07/31/2022 15:20:01 Result Notes None recorded. Problems Name Problem SNOMED Code Status Onset Date Resolution Date Notes Provider Name and Address Organization Details Recorded Time Pain of left wrist 284316336308732 Active 2022 ROSELYN Wall null, [place] [employer] 3 14:19:46 Open wound of left upper arm due to dog bite 88780659996269277 Active 2022 Pawan Waggoner MD [address] [place] [address], [facility] [address], [place], [address] , [employer] 15:20:19 Problem Notes None recorded. Medical Equipment None Reported. [...] height Body mass index (BMI) Body weight Provider Name and Address Organization Details Last Updated DateTime 07/31/2022 152.4 cm 29.9 kg/m2 67449.63 g ROSELYN Wall [employer] [facility] [employer] 07/31/2022 14:16:46 Social History Question Answer Notes LastModified by Organizat ion Details LastModified Time Tobacco Smoking Status Unknown If Ever Smoked ROSELYN Wall null [facility] [employer] 07/31/2022 14:18:23 What Was The Date Of Your Most Recent Tobacco Screening? 07/31/2022 [email or web address] Information not available 07/31/2022 Sex: Unknown Functional Status Question Answer Note LastModified by Organization D etails LastModified Time What is your level of alcohol consumption? None [email or web address] Information not available 07/31/2022 Mental Status None recorded. Family History Relationship Description Onset Age of this Age Resolved Age Notes LastModified by Organization Details LastModified Time Mother Family history of malignant neoplasm [email or web address] Not available 2022 14:17:57 Medical History Condition Response ARTHRITIS Y STROKE/TIA Y Gynecological HistoryNo gynecological history recorded. Obstetrics History GPAL:G 0 P 0 0 0 0 Past Encounters Encounter ID Performer Location Encounter Start Date Encounter Closed Date Diagnosis/Indication Diagnosis SNOMED-CT Code Diagnosis ICD10 Code Diagnosis Note [id number] Pawan Waggoner MD [facility] [place] [address] [place] [address] 07/31/2022 13:57:15 07/31/2022 14:38:46 Pain of left wrist 7280177557 42941 M25.532 Open wound of left upper arm due to dog bite 2269690812 [id number] S41.152A patient has a organized hematoma in [...] Grady Member ID Guarantor Name 07/31/2022 1 [facility] (MEDICARE REPLACEMENT/A DVANTAGE - HMO) [id number] Leanna Jeff [id number] Leanna Jeff Notes Date Note Type Note Provider Name [...] her elbow and arm. Pawan Waggoner MD [address] [place] [address], [place] [address], [place], [address], [place] [employer] [place] [employer] [facility] 07/31/2022 15:22:00 OBGyn Episode No OBEpisode recorded.
--- OUTSIDE RECORDS SUMMARY | 2024-07-24 06:56 | XMS_ITS | Clinical Summary ---
Author Organization [facility] [address] Address [address] [place] [address] Care Team Providers Care Journeyman Carpenter Name Role Phone Frank Gillis MD Primary Care Provider [phone] Emy Blanca OD Unavailable [phone] Mihaela Knowles MD PhD Unavailab le Allergies [...] by mouth daily 10/22/19 22 Active omega 1-ewp-jrp-fish oil 1,200 (144-216) mg capsule Take by [...] (30 mg total) by mouth daily Active po-otca-jounq-lyco pene-ginkgo 400-300-120 mcg-mcg-mg tablet Take by mouth [...] Type Department Care Team Description 06/19/2024 Telephone [facility] [address] [facility] Medicine [address]th [place] [address] [place] [address] Bettie Kelley RN 05/12/2024 Documentation [facility] [address] [facility] Medicine 6th [place] [address] [place] [address] Nanci Pham RMA lung biopsy (Spoke with Denia Morelos at [facility] (medical record dep), I did sent her Leder head latter to fax us Lung biopsy from 2019.) 04/30/2024 3:25 PM PERFECT BINDER OPERATOR Lab [facility] [address] [place] [address] Myasthenia gravis (HCC); High risk medication use 04/30/2024 11:00 AM PERFECT BINDER OPERATOR Office Visit [facility] [address] [facility] 6th [place] [address] [place] [address] Mihaela Knowles MD PhD Myasthenia gravis (HCC) [...] on file Legal Sex Female 2:47 AM PERFECT BINDER OPERATOR Gender Identity Not on file Sexual Orientation Not on file Obstetrics History Last Filed Vital Signs Vital Sign Reading Time Taken Comments Blood Pressure 172/67 04/30/2024 10:39 AM PERFECT BINDER OPERATOR Pulse 88 04/30/2024 10:39 AM PERFECT BINDER OPERATOR Temperature - - Respiratory Rate - - Oxygen Saturation 97% 02/03/2024 12:03 PM PERFECT BINDER OPERATOR Inhaled Oxygen Concentration - - Weight 79.8 kg (176 lb) 04/30/2024 10:39 AM PERFECT BINDER OPERATOR Height 152.4 cm (5') 04/30/2024 10:39 AM PERFECT BINDER OPERATOR Body Mass Index 34.37 04/30/2024 10:39 AM PERFECT BINDER OPERATOR Plan of Treatment Health Maintenance Due Date [...] Diagnosis Comments EGFR Routine 04/30/2024 12:44 PM PERFECT BINDER OPERATOR Myasthenia gravis (HCC) High risk medication use DIFFERENTIAL AUTO Routine 04/30/2024 12: 44 PM PERFECT BINDER OPERATOR Myasthenia gravis (HCC) High risk medication use ACETYLCHOLINE RECEPTOR, BINDING AB Routine 04/30/2024 12:44 PM PERFECT BINDER OPERATOR Myasthenia gravis (HCC) High risk medication use COMPREHENSIVE METABOLIC PANEL Routine 04/30/2024 12:44 PM PERFECT BINDER OPERATOR Myasthenia gravis (HCC) High risk medication use CBC WITH AUTO DIFFERENTIAL Routine 04/30/2024 12:44 PM PERFECT BINDER OPERATOR Myasthenia gravis (HCC) High risk medication use HEMOGLOBIN A1C Routine 04/30/2024 12:44 PM PERFECT BINDER OPERATOR Myasthenia gravis (HCC) High risk medication use from Last 3 Months Results * (ABNORMAL) eGFR (04/30/2024 12:44 PM PERFECT BINDER OPERATOR) eGFR 54(L) >=60 mL/min/1. 73 m2 Comment: [...] reviewed 2020. Blood 04/30/2024 12:4 4 PM PERFECT BINDER OPERATOR 04/30/2024 1:07 PM PERFECT BINDER OPERATOR us Mihaela Knowels MD PhD LAB BLOOD ORDERABLES Final Result [facility] Department [place] [address] * (ABNORMAL) Differential, auto (04/30/2024 12:44 PM PERFECT BINDER OPERATOR) Pathologist [facility] Neutrophil abs 15.8(H) 1.5 - 6.5 K/cumm Imm gran abs 0.5(H) 0.0 - 0.1 K/cumm [facility] Lymphocyte abs 1.0 0.8 - 3.3 K/cumm [facility] Monocyte abs 0.7 0.2 - 0.8 K/cumm [facility] Eosinophil abs 0.0 0.0 - 0.5 K/cumm [facility] Basophil abs 0.1 0.0 - 0.1 K/cumm [facility] Neutrophil pct 87.5 % [facility] Comment: Interpretive Data Percent cell count reference ranges are not reported, since discordance with absolute values may lead to misinterpretation of CBC data. Current Interpretive Data was last revised on 2017. Imm gran pct 2.6 % [facility] Comment: Interpretive Data Percent cell count reference ranges are not reported, since discordance with absolute values may lead to misinterpretation of CBC data. Current Interpretive Data was last revised on 2017. Lymphocyte pct 5.6 % [facility] Comment: Interpretive Data Percent cell count reference ranges are not reported, since discordance with absolute values may lead to misinterpretation of CBC data. Current Interpretive Data was last revised on 2017. Monocyte pct 3.6 % [facility] Comment: Interpretive Data Percent cell count reference ranges are not reported, since discordance with absolute values may lead to misinterpretation of CBC data. Current Interpretive Data was last revised on 2017. Eosinophil pct 0.1 % [facility] Comment: Interpretive Data Percent cell count reference ranges are not reported, since discordance with absolute values may lead to misinterpretation of CBC data. Current Interpretive Data was last revised on 2017. Basophil pct 0.6 % [facility] Comment: Interpretive Data Percent cell count reference ranges are not reported, since discordance with absolute values may lead to misinterpretation of CBC data. Current Interpretive Data was last revised on 2017. Blood 04/30/2024 12:4 4 PM PERFECT BINDER OPERATOR 04/30/2024 1:01 PM PERFECT BINDER OPERATOR us Mihaela Knowles MD PhD LAB BLOOD ORDERABLES Final Result [facility] Department [place] [address] * (ABNORMAL) CBC with auto differential (04/30/2024 12:44 PM PERFECT BINDER OPERATOR) WBC 18.0(H) 3.8 - 9.9 K/cumm Hgb 12.0 11.9 - 15.5 g/dL [facility] Hct 37.6 35.6 - 45.5 % [facility] Plt 436(H) 150 - 400 K/cumm [facility] MPV 10.1 9.1 - 12.3 fL [facility] RBC 4.29 3.90 - 5.20 M/cumm [facility] MCV 87.6 81.3 - 96.4 fL [facility] MCH 28.0 27.1 - 33.3 pg [facility] MCHC 31.9(L) 32.3 - 35.7 g/dL [facility] RDW CV 15.1(H) 11.1 - 14.9 % [facility] RDW SD 48.6(H) 35.7 - 48.1 fL [facility] NRBC abs 0.00 0.00 - 0.01 K/cumm [facility] Blood 04/30/2024 12:4 4 PM PERFECT BINDER OPERATOR 04/30/2024 1:01 PM PERFECT BINDER OPERATOR us Mihaela Knowles MD PhD LAB BLOOD ORDERABLES Final Result [facility] Department [place] [address] * (ABNORMAL) Acetylcholine receptor, binding AB (04/30/2024 12:44 PM PERFECT BINDER OPERATOR) [facility] Anti-acetylcholine receptor, binding 0.53(H) <=0.02 nmol/L [facility] Comment: Due to a change in assay reagent for the Acetylcholine Receptor (Muscle AChR) Binding Antibody (ARBI) test, direct quantitative comparison to previous testing results is not advised. ADDITIONAL INFORMATION This test was developed and its performance characteristics determined by [facility] in a manner consistent with CLIA requirements. This test has not been cleared or approved by the U.S. Food and Drug Administration. Test Performed by: [facility] - [address] [address] Directional Drill Operator: Rachel Arvizu Ph.D.; CLIA# [id number] Blood 04/30/2024 12:4 4 PM PERFECT BINDER OPERATOR 04/30/2024 2:02 PM PERFECT BINDER OPERATOR Mihaela Knowles MD PhD LAB BLOOD ORDERABLES Final Result Performing Organization Address [facility] Co de Phone Number [facility] Department [place] [address] [facility] * (ABNORMAL) Hemoglobin A1c (04/30/2024 12:44 PM PERFECT BINDER OPERATOR) Pathologist [facility] Hgb A1C 6.6(H) 4.0 - 5.6 % Estimated Average Glucose 143 mg/dL [facility] Comment: The ADA recommends reporting an estimated Average Glucose (eAG) with all Hemoglobin A1c results using the equation derived from a study of 507 normal and diabetic adults. Minority populations were underrepresented and children were not included. (Diabetes Care 2020; 43(S1): S66-S76). The eAG is not equivalent to a fasting glucose. Blood 04/30/2024 12:4 4 PM PERFECT BINDER OPERATOR 04/30/2024 1:01 PM PERFECT BINDER OPERATOR Mihaela Knowles MD PhD LAB BLOOD ORDERABLES Final Result Performing Organization Address [facility] de Phone Number [facility] Department [place] [address] * Comprehensive metabolic panel (04/30/2024 12:44 PM PERFECT BINDER OPERATOR) [facility] Sodium 142 135 - 145 mmol/L Potassium, pl 4.6 3.3 - 4.9 mmol/L [facility] Chloride 103 97 - 110 mmol/L [facility] CO2 27 22 - 32 mmol/L [facility] Anion gap 12 2 - 15 mmol/L [facility] BUN 24 6 - 25 mg/dL [facility] Creatinine 1.05 0.60 - 1.10 mg/dL [facility] Glucose 154 70 - 199 mg/dL [facility] Comment: Interpretive Data Fasting glucose [...] Calcium 9.7 8.5 - 10.3 mg/dL [facility] Bilirubin, total 0.3 0.1 - 1.2 mg/dL [facility] Protein, pl 7.2 6.5 - 8.5 g/dL [facility] Albumin 4.1 3.5 - 5.0 g/dL [facility] Alk phos 64 40 - 130 Units/L [facility] ALT 21 7 - 45 Units/L [facility] AST 17 10 - 45 Units/L [facility] Blood 04/30/2024 12:4 4 PM PERFECT BINDER OPERATOR 04/30/2024 1:01 PM PERFECT BINDER OPERATOR Mihaela Knowles MD PhD LAB BLOOD ORDERABLES Final Result [facility] Department [place] [address] from Last 3 Months Insurance [facility] MDCR HMO REF MEDICARE ADVANTAGE Member Subscriber Plan / Payer (Ef fective 2023-Present) Name:Leanna Jeff Relation to Subscriber:Self Name:Leanna Jeff Payer ID:[id number] (NAIC) Type:[facility] MEDICARE Address: [address] [place] [phone] Care Teams Journeyman Carpenter Relationship Specialty Start Date End Date Frank Gillis MD PCP - General Family Medicine 01/15/22 Emy Blanca OD [address] [place] [address] Referring Physician Optometry 01/15/22 Mihaela Knowles MD PhD [address] [facility], [address] [address] Neurologist Neurology 9/5/23
--- OUTSIDE RECORDS SUMMARY | 2024-07-24 06:56 | XMS_ITS | Continuity of Care Document ---
Author Organization [facility] Address [address] [place] [address] [place] [address] Phone Care Team Providers Care Order Picker/Assembler Name Role Phone Fuentes Kyle Unavailable Unavailable Procedures Procedure Date Eye Exam & Treatment Office/outpatient Visit, [facility] Advance Directives Directive Yes / No Effective Date File Name No Information Encounters Encounter Description Practice Location Reason(s) For Visit Diagnoses Date Provider Providers Copied on Encounter [facility], [address] [place] [address] [address], [place], [place], [id number], tel:[phone] [facility] No Information 4-201 0 Saroj Dill. [address] [place] [address], [facility], [place]. tel:[phone] Referring Provider: Fuentes tejada, [address] [place] [address], [facility]. tel:[phone] Office/outpat ient Visit, [facility], [address] [place] [address] [address], [place], [place], [id number], tel:[phone] [facility] No Information 0-200 7 Miko Corrales. [address], [facility] [place], [id number], [place]. tel:[phone] Family History Family Member Type Diagnosis Age At Onset No Information Payers Payer name Insurance type Covered republican ID Authoriza tion(s) No Information Social History [...]
--- OUTSIDE RECORDS SUMMARY | 2024-07-24 06:57 | XMS_ITS | Referral Summary ---
Author Organization [facility] [place] [address] Address [address] [place] [address] Care Team Providers Care Delivery Specialist Name Role Phone Frank Gillis MD Primary Care Provider [phone] Emy Blanca OD Unavailable Mihaela Knowles MD PhD Unavailab le Encounters Date Type Department Care Team Description 06/19/2024 Telephone [facility] Neuro Muscle [address] [facility] 6th [place] [address] [place] [address] Bettie Kelley RN 05/12/2024 Documentation [facility] Neuro Muscle [address] [facility] 6th [place] [address] [place] [address] Nanci Pham RMA lung biopsy (Spoke with Denia Morelos at [facility] (medical record dep), I did sent her Leder head latter to fax us Lung biopsy from 2019.) 04/30/2024 3:25 PM CHICKEN TENDER Lab [facility] [address] [place] [address] Myasthenia gravis (HCC); High risk medication use 04/30/2024 11:00 AM CHICKEN TENDER Office Visit [facility] Neuro Muscle [address] [facility] 6th [place] [address] [place] [address] Mihaela Knowles MD PhD Myasthenia [...] by mouth daily 10/22/19 22 Active omega 9-vtj-gzr-fish oil 1,200 (144-216) mg capsule Take by [...] (30 mg total) by mouth daily Active dw-fhsa-noaid-lyco pene-ginkgo 400-300-120 mcg-mcg-mg tablet Take by mouth [...] on file Legal Sex Female 2:47 AM CHICKEN TENDER Gender Identity Not on file Sexual Orientation Not on file Last Filed Vital Signs Vital Sign Reading Time Taken Comments Blood Pressure 172/67 04/30/2024 10:39 AM CHICKEN TENDER Pulse 88 04/30/2024 10:39 AM CHICKEN TENDER Temperature - - Respiratory Rate - - Oxygen Saturation 97% 02/03/2024 12:03 PM CHICKEN TENDER Inhaled Oxygen Concentration - - Weight 79.8 kg (176 lb) 04/30/2024 10:39 AM CHICKEN TENDER Height 152.4 cm (5') 04/30/2024 10:39 AM CHICKEN TENDER Body Mass Index 34.37 04/30/2024 10:39 AM CHICKEN TENDER Plan of Treatment Not on file Procedures Procedure Name Priority Date/Time Associated Diagnosis Comments EGFR Routine 04/30/2024 12:44 PM CHICKEN TENDER Myasthenia gravis (HCC) High risk medication use DIFFERENTIAL AUTO Routine 04/30/2024 12: 44 PM CHICKEN TENDER Myasthenia gravis (HCC) High risk medication use ACETYLCHOLINE RECEPTOR, BINDING AB Routine 04/30/2024 12:44 PM CHICKEN TENDER Myasthenia gravis (HCC) High risk medication use COMPREHENSIVE METABOLIC PANEL Routine 04/30/2024 12:44 PM CHICKEN TENDER Myasthenia gravis (HCC) High risk medication use CBC WITH AUTO DIFFERENTIAL Routine 04/30/2024 12:44 PM CHICKEN TENDER Myasthenia gravis (HCC) High risk medication use HEMOGLOBIN A1C Routine 04/30/2024 12:44 PM CHICKEN TENDER Myasthenia gravis (HCC) High risk medication use from Last 3 Months Results * (ABNORMAL) eGFR (04/30/2024 12:44 PM CHICKEN TENDER) eGFR 54(L) >=60 mL/min/1. 73 m2 Comment: [...] reviewed 2020. Blood 04/30/2024 12:4 4 PM CHICKEN TENDER 04/30/2024 1:07 PM CHICKEN TENDER us Mihaela Knowles MD PhD LAB BLOOD ORDERABLES Final Result [facility] [place] [address] * (ABNORMAL) Differential, auto (04/30/2024 12:44 PM CHICKEN TENDER) Neutrophil abs 15.8(H) 1.5 - 6.5 K/cumm Imm gran abs 0.5(H) 0.0 - 0.1 K/cumm [facility] Lymphocyte abs 1.0 0.8 - 3.3 K/cumm [facility] Monocyte abs 0.7 0.2 - 0.8 K/cumm [facility] Eosinophil abs 0.0 0.0 - 0.5 K/cumm [facility] Basophil abs 0.1 0.0 - 0.1 K/cumm [facility] Neutrophil pct 87.5 % [facility] Comment: Interpretive Data Percent cell count reference ranges are not reported, since discordance with absolute values may lead to misinterpretation of CBC data. Current Interpretive Data was last revised on 2017. Imm gran pct 2.6 % [facility] Comment: Interpretive Data Percent cell count reference ranges are not reported, since discordance with absolute values may lead to misinterpretation of CBC data. Current Interpretive Data was last revised on 2017. Lymphocyte pct 5.6 % [facility] Comment: Interpretive Data Percent cell count reference ranges are not reported, since discordance with absolute values may lead to misinterpretation of CBC data. Current Interpretive Data was last revised on 2017. Monocyte pct 3.6 % [facility] Comment: Interpretive Data Percent cell count reference ranges are not reported, since discordance with absolute values may lead to misinterpretation of CBC data. Current Interpretive Data was last revised on 2017. Eosinophil pct 0.1 % [facility] Comment: Interpretive Data Percent cell count reference ranges are not reported, since discordance with absolute values may lead to misinterpretation of CBC data. Current Interpretive Data was last revised on 2017. Basophil pct 0.6 % [facility] Comment: Interpretive Data Percent cell count reference ranges are not reported, since discordance with absolute values may lead to misinterpretation of CBC data. Current Interpretive Data was last revised on 2017. Blood 04/30/2024 12:4 4 PM CHICKEN TENDER 04/30/2024 1:01 PM CHICKEN TENDER Mihaela Knowles MD PhD LAB BLOOD ORDERABLES Final Result Performing Organization Address City/[facility]/ZIP Co de Phone Number [facility] [place] [employer] [place] [address] * (ABNORMAL) CBC with auto differential (04/30/2024 12:44 PM CHICKEN TENDER) [facility] WBC 18.0(H) 3.8 - 9.9 K/cumm Hgb 12.0 11.9 - 15.5 g/dL [facility] Hct 37.6 35.6 - 45.5 % [facility] Plt 436(H) 150 - 400 K/cumm [facility] MPV 10.1 9.1 - 12.3 fL [facility] RBC 4.29 3.90 - 5.20 M/cumm [facility] MCV 87.6 81.3 - 96.4 fL [facility] MCH 28.0 27.1 - 33.3 pg [facility] MCHC 31.9(L) 32.3 - 35.7 g/dL [facility] RDW CV 15.1(H) 11.1 - 14.9 % [facility] RDW SD 48.6(H) 35.7 - 48.1 fL [facility] NRBC abs 0.00 0.00 - 0.01 K/cumm [facility] Blood 04/30/2024 12:4 4 PM CHICKEN TENDER 04/30/2024 1:01 PM CHICKEN TENDER Mihaela Knowles MD PhD LAB BLOOD ORDERABLES Final Result [facility] [place] [employer] [place] [address] * (ABNORMAL) Acetylcholine receptor, binding AB (04/30/2024 12:44 PM CHICKEN TENDER) Pathologist [facility] Anti-acetylcholine receptor, binding 0.53(H) <=0.02 nmol/L [place] [facility] Comment: Due to a change in assay reagent for the Acetylcholine Receptor (Muscle AChR) Binding Antibody (ARBI) test, direct quantitative comparison to previous testing results is not advised. ADDITIONAL INFORMATION This test was developed and its performance characteristics determined by [facility] in a manner consistent with CLIA requirements. This test has not been cleared or approved by the U.S. Food and Drug Administration. Test Performed by: [address] [address] [employer] [place]: Rachel Arvizu Ph.D.; CLIA# [id number] Blood 04/30/2024 12:4 4 PM CHICKEN TENDER 04/30/2024 2:02 PM CHICKEN TENDER Mihaela Knowles MD PhD LAB BLOOD ORDERABLES Final Result Performing Organization Address [facility] de Phone Number [facility] [employer] [address] [place] [facility] * (ABNORMAL) Hemoglobin A1c (04/30/2024 12:44 PM CHICKEN TENDER) Hgb A1C 6.6(H) 4.0 - 5.6 % Estimated Average Glucose 143 mg/dL [facility] Comment: The ADA recommends reporting an estimated Average Glucose (eAG) with all Hemoglobin A1c results using the equation derived from a study of 507 normal and diabetic adults. Minority populations were underrepresented and children were not included. (Diabetes Care 2020; 43(S1): S66-S76). The eAG is not equivalent to a fasting glucose. Blood 04/30/2024 12:4 4 PM CHICKEN TENDER 04/30/2024 1:01 PM CHICKEN TENDER Mihaela Knowles MD PhD LAB BLOOD ORDERABLES Final Result Performing Organization Address [facility] Co de Phone Number [facility] [place] [address] * Comprehensive metabolic panel (04/30/2024 12:44 PM CHICKEN TENDER) Sodium 142 135 - 145 mmol/L Potassium, pl 4.6 3.3 - 4.9 mmol/L [facility] Chloride 103 97 - 110 mmol/L [facility] CO2 27 22 - 32 mmol/L [facility] Anion gap 12 2 - 15 mmol/L [facility] BUN 24 6 - 25 mg/dL [facility] Creatinine 1.05 0.60 - 1.10 mg/dL [facility] Glucose 154 70 - 199 mg/dL [facility] Comment: Interpretive Data Fasting glucose [...] 2022. Calcium 9.7 8.5 - 10.3 mg/dL [facility] Bilirubin, total 0.3 0.1 - 1.2 mg/dL [facility] Protein, pl 7.2 6.5 - 8.5 g/dL [facility] Albumin 4.1 3.5 - 5.0 g/dL [facility] Alk phos 64 40 - 130 Units/L [facility] ALT 21 7 - 45 Units/L [facility] AST 17 10 - 45 Units/L [facility] Blood 04/30/2024 12:4 4 PM CHICKEN TENDER 04/30/2024 1:01 PM CHICKEN TENDER us Mihaela Knowles MD PhD LAB BLOOD ORDERABLES Final Result [facility] [place] [address] from Last 3 Months Insurance MDCR HMO REF UHC MEDICARE ADVANTAGE Member Subscriber Plan / Payer (Ef fective 2022-Present) Name:Leanna Jeff Relation to Subscriber:Self Name:Leanna Jeff Payer ID:[id number] (NAIC) Type:[facility] MEDICARE Address: [address] UHC MEDICARE ADVANTAGE [address] Care Teams Delivery Specialist Relationship Specialty Start Date End Date Frank Gillis MD PCP - General Family Medicine 01/15/22 Emy Blanca OD [address] [place] [address] Referring Physician Optometry 01/15/22 Mihaela Knowles MD PhD [address] [facility] NEUROLOGY NEUROMUSCULAR, [address] [address] Neurologist Neurology 10/30/22
[2024-07-24 08:01] LABS: Hematocrit 38.5 % (37.0-47.0); Mean Corpuscular HGB Conc 31.2 g/dl (32-36); Mean Corpuscular Hemoglobin 28.4 pg (26-34); Mean Platelet Volume 10.3 fl (7.4-10.4); Platelet Count Result 400 k/mm3 (150-375); Red Blood Count 4.23 M/mm3 (4.2-5.4); Red Cell Distribution Width 15.4 % (11.5-14.5); White Blood Count 15.2 K/mm3 (4.5-10.0)
[2024-07-24 08:16] LABS: Alanine Aminotransferase 24 U/L (6-35); Albumin Level 4.1 g/dL (3.5-5.1); Alkaline Phosphatase 53 U/L (38-126); Anion Gap 7 mmol/L (4-12); Aspartate Amino Transferase 25 U/L (14-36); Bilirubin,Total 0.5 mg/dL (0.2-1.3); Blood Urea Nitrogen 32 mg/dL (7-17); Calcium 9.6 mg/dL (8.4-10.2); Carbon Dioxide 30 mmol/L (22-30); Chloride 101 mmol/L (98-107); Cholesterol 177 mg/dL (0-200); Estimated Glomerular Filt Rate 45; Glucose 103 mg/dL (65-110); HDL Direct 54 mg/dL; Potassium 3.9 mmol/L (3.4-5.0); Sodium 138 mmol/L (137-145); Triglycerides 197 mg/dL (<150)
[2024-07-24 08:23] LABS: Band Neutrophils Percent 5 % (0-6); Lymphocytes Absolute Manual 3.64 K/mm3 (1.1-4.5); Lymphocytes Percent Manual 24 % (18-44); Monocytes Absolute Manual 1.36 K/mm3 (0.1-0.90); Monocytes Percent Manual 9 % (3-9); Neutrophils Absolute Manual 10.03 K/mm3 (1.3-6.7); Neutrophils Percent Manual 61 % (46-73); Total Cells Counted 100
[2024-07-24 08:24] LABS: Anisocytosis 1+; Eosinophils Absolute Manual 0.15 K/mm3 (0.02-0.50); Eosinophils Percent Manual 1 % (0-4); Ovalocytes 1+; Platelet Estimate Adequate (Adequate); Schistocytes None Seen
[2024-07-24 08:27] LABS: LDL Cholesterol Direct 71 mg/dL
[2024-07-24 08:42] LABS: Thyroid Stimulating Hormone 0.445 uIU/mL (0.465-4.680); Total Triiodothyronine (T3) 0.92 NG/ML (0.82-1.58)
[2024-07-24 09:02] LABS: Hepatitis C Virus Antibody Negative (Negative)
== END 2024-07-24 06:54 | disposition home or self-care (01) ==
PROVIDERS: PCP Family Medicine; Visit Provider Registered Nurse
DX: E78.5 Hyperlipidemia, unspecified (principal); E11.9 Type 2 diabetes mellitus without complications; I10 Essential (primary) hypertension; R53.83 Other fatigue; Z11.59 Encounter for screening for other viral diseases
CPT/HCPCS: 36415; 80053; 80061; 83036; 84439; 84443; 84480; 85025; 86803

== ENCOUNTER 2024-08-25 13:19 | Outpatient (CLI) | payer MEDICARE, SELFPAY ==
--- NOTE | ~2024-08-25 | US_ITS ---
EXAMINATION: US arterial ankle brachial ind DATE: 08/25/2024 14:30 INDICATION: Cardiovascular disorders. Type 2 diabetes. TECHNIQUE: Segmental pressures and plethysmographic and Doppler waveforms of the brachial and lower e xtremity arteries were obtained. COMPARISON: None. FINDINGS: Right and left brachial artery pressures of 112 mm Hg and 127 mm Hg, respectively, are concordant (no rmal difference <= 30 mmHg). The right ankle-brachial index (BANDAR) is unable be obtained due to inability to occlude the vessels (n ormal >= 0.9-1.0). This could be due to vessel wall calcification as is seen in the right posterior t ibial artery on right foot radiographs dated 07/13/2024 The right great toe-brachial index (TBI) is 12 .54 (normal >= 0.65). Arterial Doppler waveforms are biphasic at the right posterior tibial artery an d monophasic at the right dorsalis pedis artery, both with with brisk systolic upstrokes. The left BANDAR is unable be obtained due to inability to occlude the vessels. The left TBI is 0.64. Art erial Doppler waveforms are biphasic at the left posterior tibial artery and monophasic at the right dorsalis pedis artery, both with with brisk systolic upstrokes. IMPRESSION: 1. Arterial occlusive disease to bilateral lower limbs with mildly decreased bilateral ABIs. Bilatera l ABIs and obtained due to inability to occlude the vessels which could be due to vessel wall calcifi cation. Reviewed, dictated and finalized at location B. IMPRESSION: 1. Arterial occlusive disease to bilateral lower limbs with mildly decreased bi lateral ABIs. Bilateral ABIs and obtained due to inability to occlude the vesse ls which could be due to vessel wall calcification.
--- OUTSIDE RECORDS SUMMARY | 2024-08-25 13:28 | XMS_ITS | Data Portability ---
Author Organization [facility] [employer], Main Office Address [address] [place] [address] Care Team Providers Care Piling Cutter Name Role Phone VALENTINO GARCIA Primary Care Provider VALENTINO GARCIA Referring Provider [phone] Assessment No assessment recorded. Plan of Treatment Reminders Order Date Submit Date Provider Last Modified By Organization Details Last Modified Time Details Appointments None record ed. Lab None record ed. Referral None record ed. Procedures None record ed. Surgeries None record ed. Imaging XR, wrist, 3 or more view 023 08/01/19 [email or web address] [facility] [place], [address] [place] [address] [address], [place], [address], 15:20:02 Medication Orders None record ed. Patient [...] XR, wrist No observ ation record ed. [email or web address] Not Available 2022 10:12:42 07/18/1907/03/2022 XR, humer us, 2 or more view No observ ation record ed. [email or web address] Not Available 2022 10:13:16 08/01/19 23 XR, wrist , 3 or more view No observ ation record ed. [email or web address] [facility] [place] [address], [place], [address], 07/31/2022 15:20:01 Result Notes None recorded. Problems Name Problem SNOMED Code Status Onset Date Resolution Date Notes Provider Name and Address Organization Details Recorded Time Pain of left wrist 092162682527300 Active 2022 ROSELYN Wall null, [employer] 14:19:46 Open wound of left upper arm due to dog bite 67684701469541711 Active 2022 Pawan Waggoner MD [address] [place] [address], [facility] [address], [place], [address] , [employer] 15:20:19 Problem Notes None recorded. Medical Equipment [...] Updated DateTime 07/31/2022 152.4 cm 29.9 kg/m2 97389.63 g ROSELYN Wall [employer] 07/31/2022 14:16:46 Social History Question Answer Notes LastModified by Organizat ion Details LastModified Time Tobacco Smoking Status Unknown If Ever Smoked ROSELYN Wall null, [employer] 07/31/2022 14:18:23 What Was The Date Of Your Most Recent Tobacco Screening? 07/31/2022 [email or web address] Information not available 07/31/2022 Sex: Unknown Functional Status Question Answer Note LastModified by Organization D etails LastModified Time What is your level of alcohol consumption? None [email or web address] Information not available 07/31/2022 Mental Status None recorded. Family History Relationship Description Onset Age of this Age Resolved Age Notes LastModified by Organization Details LastModified Time Mother Family history of malignant neoplasm [email or web address] Not available 2022 14:17:57 Medical History Condition Response STROKE/TIA Y ARTHRITIS Y Gynecological HistoryNo gynecological history recorded. Obstetrics History GPAL:G 0 P 0 0 0 0 Past Encounters Encounter ID Performer Location Encounter Start Date Encounter Closed Date Diagnosis/Indication Diagnosis SNOMED-CT Code Diagnosis ICD10 Code Diagnosis Note [id number] Pawan Waggoner MD [facility] [address] [place] [address] 07/31/2022 13:57:15 07/31/2022 14:38:46 Pain of left wrist [id number] 85850 M25.532 Open wound of left upper arm due to dog bite 2572035016 2745613 S41.152A patient has a organized hematoma in [...] Recorded Advance Directives Directive None Recorded Payers Insurance Date Sequence Insurance Name Policy Number Policy Grady Covered Member ID Grady Member ID Guarantor Name 07/27/2023 1 [facility] (MEDICARE REPLACEMENT/A DVANTAGE - HMO) [id number] Leanna Jeff [id number] Leanna Jeff Notes Date Note Type Note [...] her elbow and arm. Pawan Waggoner MD [address] [place] [address], [place] [address], [place], [address], [place] [facility] 07/31/2022 15:22:00 OBGyn Episode No OBEpisode recorded.
--- OUTSIDE RECORDS SUMMARY | 2024-08-25 13:28 | XMS_ITS | Referral Summary ---
Author Organization [facility] [place] [address] [facility] [address] [place] [address] Care Team Providers Care Train Driver Name Role Phone Frank Gillis MD Primary Care Provider [phone] Emy Blanca OD Unavailable [phone] Mihaela Knowles MD PhD Unavailab le Encounters Date Type Department Care Team Description 08/03/2024 10:45 AM CDT Office Visit [facility] Cardiology [address] [place] [address] Charlotte Lucas MD Nonrheumatic aortic valve stenosis (Primary Dx); Mixed hyperlipidemia; Essential hypertension; Bilateral lower extremity edema 06/19/2024 Telephone [facility] [address] [facility] 6th [place] [address] [place] [address] Bettie Kelley RN from Last 3 Months Allergies Active Allergy Reactions Criticality Noted Date Comments Adhesive Rash Medium 01/15/2022 Azithromycin Hives Medium 01/15/2022 Medications calcium carbonate-vitamin D3 (CALTRATE 600 + D) 1500 mg (600 mg elemental) -400 units per tablet TAKE ONE TABLET IN THE MORNING AND ONE TABLET IN THE EVENING Active lovastatin (MEVACOR) 20 mg tablet Take 1 tablet (20 mg total) by mouth daily Active metFORMIN XR (GLUCOPHAGE XR) 500 mg 24 hr tablet Take 1 tablet (500 mg total) by mouth daily Active omeprazole (PriLOSEC) 20 mg capsule Take by mouth daily 022 Active omega 1-lfm-tic-fish oil 1,200 (144-216) mg capsule Take by mouth Active meclizine (ANTIVERT) 12.5 mg tablet Take 1 tablet (12.5 mg total) by mouth 3 (three) times a day as needed Active lisinopriL (PRINIVIL,ZESTRIL ) 20 mg tablet Take 1 tablet (20 mg total) by mouth daily 023 Active loratadine (CLARITIN) 10 mg tablet Take 1 tablet (10 mg total) by mouth every morning 023 Active fexofenadine ODT (SEGUN ODT) 30 mg disintegrating tablet Take 1 tablet (30 mg total) by mouth daily Active rx-rdhn-igonn-lyc opene-ginkgo 400-300-120 mcg-mcg-mg tablet Take by mouth Multivitamin Active triamcinolone (KENALOG) 0.1 % cream Active predniSONE (DELTASONE) 10 mg tabletIndications :Myasthenia gravis (HCC) TAKE 2 TABLETS BY MOUTH DAILY 180 tablet 2 024 Active cyanocobalamin (Vitamin B-12) 1,000 mcg tabletIndications :Prevention of Vitamin B12 Deficiency Take 1 tablet (1,000 mcg total) by mouth daily Active furosemide (LASIX) 20 mg tablet Take 1 tablet (20 mg total) by mouth daily 30 tablet 11 025 2025 Active pyRIDostigmine (MESTINON) 60 mg tabletIndications :Myasthenia Gravis,Ocular Myasthenia Take 2 tablets (120 mg total) by mouth 3 (three) times a day with meals 540 tablet 3 023 2024 Discontinued(N o longer taking - Do not display on AVS) psyllium seed, with sugar, (METAMUCIL, SUGAR, ORAL) Take by mouth 2024 Discontinued(N o longer taking - Do not display on AVS) hydroCHLOROthiazi de (HYDRODIURIL) 25 mg tablet Take 1 tablet (25 mg total) by mouth daily 2024 Discontinued Active Problems Problem Noted Date Diagnosed Date Bilateral lower extremity edema 08/03/2024 Nonrheumatic aortic valve stenosis 11/04/2023 Essential hypertension [...] on file 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 Gender Identity Not on file Sexual Orientation Not on file Last Filed Vital Signs Vital Sign Reading Time Taken Comments Blood Pressure 120/62 08/03/2024 10:41 AM CDT Pulse 96 08/03/2024 10:41 AM CDT Temperature - - Respiratory Rate - - Oxygen Saturation 97% 08/03/2024 10:41 AM CDT Inhaled Oxygen Concentration - - Weight 78.9 kg (174 lb) 08/03/2024 10:41 AM CDT Height 152.4 cm (5') 08/03/2024 10:41 AM CDT Body Mass Index 33.98 08/03/2024 10:41 AM CDT Plan of Treatment Not on file Insurance [facility] MDCR HMO REF MEDICARE ADVANTAGE Member Subscriber Plan / Payer (Ef fective 2022-Present) Name:Leanna Jeff Relation to Subscriber:Self Name:Leanna Jeff Payer ID:[id number] (NAIC) Type:UHC MEDICARE Address: [place] [id number] UHC MEDICARE ADVANTAGE Care Teams Train Driver Relationship Specialty Start Date End Date Frank Gillis MD PCP - General Family Medicine 01/15/22 Emy Blanca OD [address] [place] [address] Referring Physician Optometry 01/15/22 Mihaela Knowles MD PhD [address] [facility] NE[facility] NEUROMUSCULAR, [address] [address] Neurologist Neurology 10/30/22
--- OUTSIDE RECORDS SUMMARY | 2024-08-25 13:28 | XMS_ITS | Continuity of Care Document ---
Author Organization Located within [facility] Address [address] [place] [address] [place] [address] Phone Care Team Providers Care Decorating And Assembly Supervisor Name Role Phone Fuentes Kyle Unavailable Unavailable Procedures Procedure Date Eye Exam & Treatment Office/outpatient Visit, [facility] Advance Directives Directive Yes / No Effective Date File Name No Information Encounters Encounter Description Practice Location Reason(s) For Visit Diagnoses Date Provider Providers Copied on Encounter [facility], [address] [place] [address] [address], [place], [place], [id number], tel:[phone] [facility] No Information 4-201 0 Saroj Dill. [address] [place] [address], [facility], [place]. tel:[phone] Referring Provider: Fuentes tejada, [facility] [address], [facility]. tel:[phone] Office/outpat ient Visit, [facility], [address] [place] [address] [address], [place], [place], [address], tel:[phone] [facility] No Information 0-200 7 Miko Corrales. [address], [facility] [place], [id number], [place]. tel:[phone] Family History Family Member Type Diagnosis Age At Onset No Information Payers Payer name Insurance type Covered constitution party ID Authoriza tion(s) No Information Social History [...]
--- OUTSIDE RECORDS SUMMARY | 2024-08-25 13:28 | XMS_ITS | Clinical Summary ---
Author Organization [facility] [place] [address] Address [address] [place] [address] Care Team Providers Care Lamp Cleaner Name Role Phone Frank Gillis MD Primary Care Provider [phone] Emy Blanca OD Unavailable [phone] Mihaela Knowles MD PhD Unavailab le Allergies [...] 20 mg capsule Take by mouth daily Active omega 8-pfc-yon-fish oil 1,200 (144-216) mg capsule Take by [...] (30 mg total) by mouth daily Active jk-rfwm-owknh-lyc opene-ginkgo 400-300-120 mcg-mcg-mg tablet Take by mouth Multivitamin Active triamcinolone (KENALOG) 0.1 % cream 024 Active predniSONE (DELTASONE) 10 mg tabletIndications :Myasthenia [...] Description 08/03/2024 10:45 AM CDT Office Visit [facility] Cardiology [address] [place] [address] Charlotte Lucas MD Nonrheumatic aortic valve stenosis (Primary Dx); Mixed hyperlipidemia; Essential hypertension; Bilateral lower extremity edema 06/19/2024 Telephone [facility] Neuro Muscle [address] [facility] 6th [place] [address] [place] [address] Bettie Kelley RN from Last 3 Months Surgical History Surgery [...] on file 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 Gender Identity Not on file Sexual Orientation [...] 08/03/2024 10:41 AM CDT Plan of Treatment Health Maintenance Due Date Last Done Comments Depression Screening 1945 Fall Risk Assessment 1945 Hepatitis C Screening 1945 Osteoporosis Screening-Bone Density Scan 1945 DTaP/Tdap/Td Vaccine (1 - Tdap) 1956 Hepatitis B Screening 06/13/1963 Zoster Vaccine (1 of 2) 06/13/1995 Well Visit 65+ 2010 Pneumococcal vaccine 65+ (2 of 2 - PPSV23) 12/14/2019 12/13/2018 Covid-19 Vaccine (5 - 2023-2 5 season) 2023 06/29/2021, 01/16/2021, 05/10/2020, Additional history exists Influenza Vaccine (#1) 2024 , 12/06/2020, 10/28/2019, Additional history exists Insurance MDCR HMO REF [facility] MEDICARE ADVANTAGE [facility] MEDICARE ADVANTAGE Care Teams Lamp Cleaner Relationship Specialty Start Date End Date Frank Gillis MD PCP - General Family Medicine 01/15/22 Emy Blanca, EZEQUIEL [address] [place] [address] Referring Physician Optometry 01/15/22 Mihaela Knowles MD PhD 49[address] [facility] NEUROLOGY NEUROMUSCULAR, [address] [address] Neurologist Neurology 10/30/22
[2024-08-25 14:48] LABS: Free T4 Free Thyroxine. 0.94 ng/dL (0.78-2.19)
[2024-08-25 14:53] LABS: Thyroid Stimulating Hormone < 0.015 uIU/mL (0.465-4.680)
== END 2024-08-25 13:20 | disposition home or self-care (01) ==
PROVIDERS: PCP Family Medicine; Visit Provider Registered Nurse
DX: E03.9 Hypothyroidism, unspecified (principal); E11.9 Type 2 diabetes mellitus without complications; Z13.6 Encounter for screening for cardiovascular disorders; I73.1 Thromboangiitis obliterans [Buerger's disease]
CPT/HCPCS: 36415; 84439; 84443; 93922